=== PATIENT | female | born 1985 | race Caucasian/White ===

== ENCOUNTER 2018-01-12 01:53 | Inpatient (IN) | payer MEDICARE, MEDICAID ==
[~2018-01-12] VITALS: Ht 165.1 cm; Wt 68.1 kg
[~2018-01-12 01:53] MED LIST: ALBU6.7H INH; ALBU8.5H4 IH; CLON-527 PO; CLON2TAB PO; CYCL-1 PO; IBUP-1984 PO; ORPH100T2 PO; OXCA600T5 PO; PRAZ5CAP PO
[2018-01-12 02:16] LABS: URINE HCG NEGATIVE (NEG)
[2018-01-12 02:17] LABS: CLARITY,URINE CLOUDY (Clear); COLOR,URINE YELLOW (Yellow); GLUCOSE, URINE NEGATIVE (Neg); KETONES,URINE NEGATIVE (Neg); LEUKOCYTE ESTERASE ,URINE SMALL (Neg); NITRITES, URINE POSITIVE (Neg); OCCULT BLOOD,URINE MODERATE (Neg); PROTEIN,URINE 30 mg/dl (Neg)
[2018-01-12 02:20] LABS: UA COLLECTION TYPE CLN CATCH MIDSTREAM
[2018-01-12 02:23] LABS: BACTERIA,URINE 2+ /HPF (Neg); MUCUS STRANDS MANY /LPF (Neg); SQUAMOUS EPITHELIAL CELL,UR MANY /LPF (FEW)
[2018-01-12 02:24] LABS: BASOPHILS # (AUTO) 0.1 X10'3 (0-0.2); BASOPHILS % (AUTO) 1.4 % (0-1); EOSINOPHILS # (AUTO) 0.2 X10'3 (0-0.9); EOSINOPHILS % (AUTO) 1.6 % (0-6); HEMATOCRIT 39.8 % (35.0-45.0); HEMOGLOBIN 13.8 g/dl (12.0-16.0); LYMPHOCYTES # (AUTO) 2.8 X10'3 (1.1-4.8); LYMPHOCYTES % (AUTO) 27.7 % (21-51); MEAN CORPUSCULAR HEMOGLOBIN 29.8 PG (27.0-31.0); MEAN CORPUSCULAR HGB CONC 34.8 % (33.0-36.5); MEAN CORPUSCULAR VOLUME 85.7 FL (78-98); MEAN PLATELET VOLUME 7.7 FL (7.4-10.4); MONOCYTES # (AUTO) 0.5 X10'3 (0-0.9); MONOCYTES % (AUTO) 5.1 % (2-12); NEUTROPHILS # (AUTO) 6.5 X10'3 (1.8-7.7); NEUTROPHILS % (AUTO) 64.2 % (42-75); PLATELET COUNT 356 X10'3 (140-440); RED BLOOD COUNT 4.64 X10'6 (4.20-5.60); RED CELL DISTRIBUTION WIDTH 13.7 % (11.5-14.5); WHITE BLOOD COUNT 10.1 X10'3 (4.5-11.0)
[2018-01-12 02:25] LABS: WBC,URINE TNTC /HPF (0-4)
[2018-01-12 02:39] LABS: ALANINE AMINOTRANSFERASE 29 U/L (12-78); ALBUMIN 3.8 G/DL (3.4-5.0); ALKALINE PHOSPHATASE 130 IU/L (46-116); ANION GAP 7 (8-16); ASPARTATE AMINO TRANSFERASE 16 U/L (10-37); BILIRUBIN,TOTAL 0.2 MG/DL (0.1-1.0); BLOOD UREA NITROGEN 11 MG/DL (7-18); BUN/CREATININE RATIO 13.6 (6.6-38.0); CALCIUM 9.4 MG/DL (8.5-10.1); CHLORIDE 101 MMOL/L (99-107); CREATININE 0.81 MG/DL (0.40-0.90); GLUCOSE 121 MG/DL (70-104); SODIUM 137 MMOL/L (135-145); TOTAL CARBON DIOXIDE 28.7 MMOL/L (24-32); TOTAL PROTEIN 7.6 G/DL (6.4-8.2); eGFR 81 ML/MIN
[2018-01-12] MEDS ORDERED: normal saline 1000ML IV soln IV ONE (02:40)
[2018-01-12 02:42] LABS: POTASSIUM 2.5 MMOL/L (3.5-5.1)
[2018-01-12] MEDS ORDERED: magnesium 1gm/100ml D5W IVPB 100 ML IV ONE (02:45)
[2018-01-12] MEDS ORDERED: magnesium oxide 400mg tablet PO ONE (02:45)
[2018-01-12 02:55] LABS: MAGNESIUM 1.9 MG/DL (1.5-2.4)
[2018-01-12] MEDS ORDERED: ketorolac trometh. 30mg/ml inj. IV ONE (03:25)
[2018-01-12] MEDS ORDERED: ondansetron/PF 4mg/2ml inj IV ONE ×2 (03:25→05:50)
[2018-01-12] MEDS ORDERED: normal saline 1000ML IV soln IVB ONE (03:25)
[2018-01-12] MEDS ORDERED: levoFLOXACIN 750MG TABLET PO ONE (03:40)
[2018-01-12] MEDS ORDERED: LIDOcaine 2% (20 mg/ml) 5ml cardiac syringe IV STA (04:05)
[2018-01-12] MEDS ORDERED: LEVO500T2 PO (05:35)
[2018-01-12] MEDS ORDERED: KETO10TA2 PO (05:35)
[2018-01-12] MEDS ORDERED: ONDA4TAB9 SL (05:35)
[2018-01-12] MEDS ORDERED: FLO0.4C PO (05:35)
[2018-01-12] MEDS ORDERED: HYDR-565 PO (05:35)
[2018-01-12] MEDS ORDERED: morphine 4 MG/ML inj SYRINge IV ONE ×2 (05:50→08:05)
[2018-01-12] MEDS ORDERED: POTA20TA19 PO (07:20)
[2018-01-12] MEDS ORDERED: CefTRIAXone 2gm/D5W 50ml 50 ML IV ONE (07:25)
[2018-01-12] MEDS: potassium 10mEq/100ml NS w/LIDOcaine (10mg/bag) IV SCH ×2 (08:20→08:54)
[2018-01-12] MEDS ORDERED: metoclopramide 5 mg/ml inj IV ONE (08:45)
[2018-01-12] MEDS ORDERED: diphenhydrAMINE 50 mg/ml inj IV ONE (08:45)
[2018-01-12] MEDS ORDERED: magnesium hydroxide 30ml (MOM) UD suspension PO PRN (09:05)
[2018-01-12] MEDS ORDERED: morphine 4 MG/ML inj SYRINge IV PRN ×3 (09:05→16:10)
[2018-01-12] MEDS ORDERED: HYDROcodone/acetaminophen 5mg/325mg tablet PO PRN (09:05)
[2018-01-12] MEDS ORDERED: HYDROmorphone inj. 0.5 MG/0.5 ML DISP.SYRIN IV PRN ×2 (09:05)
[2018-01-12] MEDS ORDERED: bisacodyl 10mg suppository rectal RC PRN (09:05)
[2018-01-12] MEDS ORDERED: acetaminophen 650mg rectal suppository RC PRN (09:05)
[2018-01-12] MEDS ORDERED: acetaminophen 325mg tablet PO PRN ×2 (09:05)
[2018-01-12] MEDS ORDERED: mag hydrox/Alum hydrox/simeth 30ml oral suspension PO PRN (09:05)
[2018-01-12] MEDS ORDERED: metoclopramide 5 mg/ml inj IV PRN (09:05)
[2018-01-12] MEDS ORDERED: diphenhydrAMINE 50 mg/ml inj IV PRN (09:05)
[2018-01-12] MEDS: potassium Cl 20mEq in NS 1,000 ML IV SCH ×2 (09:27→20:25)
[2018-01-12] MEDS ORDERED: DIPH-423 PO (09:31)
[2018-01-12 11:09] LABS: INR 1.1 INR; PARTIAL THROMBOPLASTIN TIME 23 SECONDS (22-32); PROTHROMBIN TIME 11.3 SECONDS (9.0-12.0)
[2018-01-12 11:22] LABS: MAGNESIUM 1.9 MG/DL (1.5-2.4); PHOSPHORUS 1.3 MG/DL (2.3-4.5)
[2018-01-12] MEDS: HYDROmorphone 1 mg/ml syringe ONE ×2 (12:10→12:18)
[2018-01-12 13:10] VITALS: BP_SYST 84; BP_SYST 87; BP_DIAS 41; BP_DIAS 43
[2018-01-12] MEDS ORDERED: sodium phosphate inj. 15 MMOL in dextrose 5%-water 150 ML IV PRN (13:40)
[2018-01-12] MEDS ORDERED: Neutra Phos packet PO PRN (13:40)
[2018-01-12] MEDS ORDERED: sodium phosphate inj. 30 MMOL in dextrose 5%-water 250 ML IV PRN (13:40)
[2018-01-12] MEDS ORDERED: magnesium Cl slow-release 64mg tablet PO PRN (13:45)
[2018-01-12] MEDS ORDERED: potassium Cl 20 mEq SR tablet PO PRN (13:45)
[2018-01-12] MEDS ORDERED: magnesium 4gm in 100ml NS 100 ML IV PRN (13:45)
[2018-01-12] MEDS ORDERED: magnesium 1gm/100ml D5W IVPB 100 ML IV PRN (13:45)
[2018-01-12] MEDS ORDERED: potassium Cl 40MEQ/NS 500ml 500 ML IV PRN ×2 (13:45)
[2018-01-12] MEDS ORDERED: normal saline 1000ml 1,000 ML IV ONE (13:50)
[2018-01-12 16:17] LABS: CREATINE KINASE 163 U/L (26-192)
[2018-01-12 16:25] VITALS: BP 96/60
[2018-01-12 19:00] VITALS: BP 92/40
[2018-01-12] MEDS ORDERED: HYDROmorphone 1 mg/ml syringe ONE (19:27)
[2018-01-12] MEDS ORDERED: HYDROmorphone 1 mg/ml syringe IV ONE (19:50)
[2018-01-12] MEDS: docusate sod 100mg capsule PO SCH (20:24)
[2018-01-12] MEDS: heparin, porcine 5000 units/ml vial SQ SCH (20:25)
[2018-01-12] MEDS ORDERED: temazepam 15mg capsule PO PRN (21:00)
[2018-01-12] MEDS: potassium Cl 20 mEq SR tablet PO PRN (23:44)
[2018-01-13] VITALS: BP 87/51
[2018-01-13] MEDS: HYDROcodone/acetaminophen 10/325mg tab PO PRN ×5 (00:57→22:20)
[2018-01-13] MEDS: potassium Cl 20 mEq SR tablet PO PRN ×4 (04:30→20:13)
[2018-01-13] MEDS: potassium Cl 20mEq in NS 1,000 ML IV SCH ×2 (04:31→12:00)
[2018-01-13] MEDS ORDERED: HYDROmorphone 1 mg/ml syringe ONE (05:21)
[2018-01-13] MEDS: ondansetron/PF 4mg/2ml inj IV PRN ×2 (05:52→13:38)
[2018-01-13] MEDS: pantoprazole 40mg Tablet.DR PO SCH (07:04)
[2018-01-13] MEDS: docusate sod 100mg capsule PO SCH ×2 (07:04→18:59)
[2018-01-13] MEDS: levoFLOXACIN-Levaquin 500mg/D5 100 ML IV SCH (07:04)
[2018-01-13] MEDS: heparin, porcine 5000 units/ml vial SQ SCH ×2 (07:11→19:27)
[2018-01-13 07:31] VITALS: BP 109/61
[2018-01-13 07:40] LABS: ALANINE AMINOTRANSFERASE 17 U/L (12-78); ALBUMIN 2.5 G/DL (3.4-5.0); ALBUMIN/GLOBULIN RATIO 0.9 (1.1-1.5); ALKALINE PHOSPHATASE 80 IU/L (46-116); ANION GAP 6 (8-16); ASPARTATE AMINO TRANSFERASE 15 U/L (10-37); BILIRUBIN,TOTAL 0.6 MG/DL (0.1-1.0); BLOOD UREA NITROGEN 6 MG/DL (7-18); CALCIUM 7.5 MG/DL (8.5-10.1); CHLORIDE 106 MMOL/L (99-107); CREATININE 0.67 MG/DL (0.40-0.90); GLUCOSE 99 MG/DL (70-104); SODIUM 139 MMOL/L (135-145); TOTAL CARBON DIOXIDE 26.6 MMOL/L (24-32); TOTAL PROTEIN 5.2 G/DL (6.4-8.2); eGFR > 90 ML/MIN
[2018-01-13 07:42] LABS: POTASSIUM 2.8 MMOL/L (3.5-5.1)
[2018-01-13] MEDS ORDERED: HYDROmorphone 1 mg/ml syringe IV PRN (09:16)
[2018-01-13 10:13] LABS: PHOSPHORUS 1.9 MG/DL (2.3-4.5)
[2018-01-13] MEDS: HYDROmorphone 1 mg/ml syringe IV PRN ×4 (10:28→23:56)
[2018-01-13 10:57] LABS: BASOPHILS % (AUTO) 0.1 % (0-1); EOSINOPHILS % (AUTO) 0.1 % (0-6); HEMATOCRIT 28.2 % (35.0-45.0); HEMOGLOBIN 9.6 g/dl (12.0-16.0); LYMPHOCYTES # (AUTO) 0.5 X10'3 (1.1-4.8); LYMPHOCYTES % (AUTO) 7.4 % (21-51); MEAN CORPUSCULAR HEMOGLOBIN 29.5 PG (27.0-31.0); MEAN CORPUSCULAR HGB CONC 34.2 % (33.0-36.5); MEAN CORPUSCULAR VOLUME 86.2 FL (78-98); MONOCYTES # (AUTO) 0.3 X10'3 (0-0.9); MONOCYTES % (AUTO) 4.2 % (2-12); NEUTROPHILS # (AUTO) 6.3 X10'3 (1.8-7.7); NEUTROPHILS % (AUTO) 88.2 % (42-75); PLATELET COUNT 152 X10'3 (140-440); RED BLOOD COUNT 3.27 X10'6 (4.20-5.60); RED CELL DISTRIBUTION WIDTH 13.9 % (11.5-14.5); WHITE BLOOD COUNT 7.1 X10'3 (4.5-11.0)
[2018-01-13 11:13] VITALS: BP 91/41
[2018-01-13] MEDS: CefTRIAXone/D5W-Rocephin 1gm 50 ML IV SCH (13:33)
[2018-01-13] MEDS: diphenhydrAMINE 25mg capsule PO PRN (15:28)
[2018-01-13 19:00] VITALS: BP 98/50
[2018-01-14] VITALS: BP 114/69
[2018-01-14] MEDS: potassium Cl 20mEq in NS 1,000 ML IV SCH (00:02)
[2018-01-14 02:17] LABS: ALANINE AMINOTRANSFERASE 23 U/L (12-78); ALBUMIN 2.4 G/DL (3.4-5.0); ALBUMIN/GLOBULIN RATIO 0.9 (1.1-1.5); ALKALINE PHOSPHATASE 68 IU/L (46-116); ANION GAP 6 (8-16); ASPARTATE AMINO TRANSFERASE 21 U/L (10-37); BILIRUBIN,TOTAL 0.2 MG/DL (0.1-1.0); BLOOD UREA NITROGEN 3 MG/DL (7-18); BUN/CREATININE RATIO 4.5 (6.6-38.0); CALCIUM 7.8 MG/DL (8.5-10.1); CHLORIDE 107 MMOL/L (99-107); CREATININE 0.66 MG/DL (0.40-0.90); GLUCOSE 99 MG/DL (70-104); PHOSPHORUS 1.5 MG/DL (2.3-4.5); POTASSIUM 4.1 MMOL/L (3.5-5.1); SODIUM 137 MMOL/L (135-145); TOTAL CARBON DIOXIDE 24.5 MMOL/L (24-32); TOTAL PROTEIN 5.1 G/DL (6.4-8.2); eGFR > 90 ML/MIN
[2018-01-14 02:51] LABS: BASOPHILS % (AUTO) 0.3 % (0-1); EOSINOPHILS # (AUTO) 0.1 X10'3 (0-0.9); EOSINOPHILS % (AUTO) 2.3 % (0-6); HEMATOCRIT 27.8 % (35.0-45.0); HEMOGLOBIN 9.4 g/dl (12.0-16.0); LYMPHOCYTES # (AUTO) 0.9 X10'3 (1.1-4.8); LYMPHOCYTES % (AUTO) 18.5 % (21-51); MEAN CORPUSCULAR HEMOGLOBIN 29.6 PG (27.0-31.0); MEAN CORPUSCULAR HGB CONC 33.9 % (33.0-36.5); MEAN CORPUSCULAR VOLUME 87.5 FL (78-98); MEAN PLATELET VOLUME 7.8 FL (7.4-10.4); MONOCYTES # (AUTO) 0.4 X10'3 (0-0.9); MONOCYTES % (AUTO) 7.3 % (2-12); NEUTROPHILS # (AUTO) 3.5 X10'3 (1.8-7.7); NEUTROPHILS % (AUTO) 71.6 % (42-75); PLATELET COUNT 139 X10'3 (140-440); RED BLOOD COUNT 3.17 X10'6 (4.20-5.60); RED CELL DISTRIBUTION WIDTH 13.7 % (11.5-14.5); WHITE BLOOD COUNT 4.9 X10'3 (4.5-11.0)
[2018-01-14] MEDS: ondansetron/PF 4mg/2ml inj IV PRN ×2 (02:56→18:57)
[2018-01-14] MEDS: HYDROcodone/acetaminophen 10/325mg tab PO PRN ×2 (02:57→07:00)
[2018-01-14] MEDS: HYDROmorphone 1 mg/ml syringe IV PRN ×5 (04:38→22:59)
[2018-01-14] MEDS: pantoprazole 40mg Tablet.DR PO SCH (07:00)
[2018-01-14] MEDS: diphenhydrAMINE 25mg capsule PO PRN ×2 (07:00→14:07)
[2018-01-14] MEDS: docusate sod 100mg capsule PO SCH ×2 (07:00→19:22)
[2018-01-14] MEDS: CefTRIAXone/D5W-Rocephin 1gm 50 ML IV SCH (07:00)
[2018-01-14] MEDS: heparin, porcine 5000 units/ml vial SQ SCH ×2 (07:00→19:23)
[2018-01-14] MEDS: levoFLOXACIN-Levaquin 500mg/D5 100 ML IV SCH (07:01)
[2018-01-14] MEDS ORDERED: oxyCODONE/APAP 5-325mg tablet PO PRN (09:00)
[2018-01-14 09:39] VITALS: BP 94/66
[2018-01-14 10:34] LABS: PREALBUMIN 11.2 MG/DL (19-36)
[2018-01-14] MEDS: oxyCODONE/APAP 10/325mg tablet PO PRN ×3 (11:03→20:23)
[2018-01-14] MEDS ORDERED: potassium phosphate inj 30 MMOL in normal saline 500ml IV soln 490 ML IV ONE (13:00)
[2018-01-14 19:20] VITALS: BP 105/61
[2018-01-14] MEDS: lactobacillus rhamnosus 10,000 MMU CELLS/CAPSULE PO SCH (19:22)
[2018-01-14 23:15] VITALS: BP 111/75
[2018-01-15] MEDS: oxyCODONE/APAP 10/325mg tablet PO PRN ×2 (03:46→11:01)
[2018-01-15 07:23] VITALS: BP 107/53
[2018-01-15] MEDS: ondansetron/PF 4mg/2ml inj IV PRN (08:10)
[2018-01-15] MEDS: pantoprazole 40mg Tablet.DR PO SCH (08:11)
[2018-01-15] MEDS: lactobacillus rhamnosus 10,000 MMU CELLS/CAPSULE PO SCH (08:11)
[2018-01-15] MEDS: docusate sod 100mg capsule PO SCH (08:11)
[2018-01-15] MEDS: CefTRIAXone/D5W-Rocephin 1gm 50 ML IV SCH (08:11)
[2018-01-15] MEDS: HYDROmorphone 1 mg/ml syringe IV PRN (08:12)
[2018-01-15] MEDS: heparin, porcine 5000 units/ml vial SQ SCH (08:14)
[2018-01-15 09:39] LABS: BASOPHILS % (AUTO) 0.4 % (0-1); EOSINOPHILS # (AUTO) 0.1 X10'3 (0-0.9); EOSINOPHILS % (AUTO) 1.5 % (0-6); HEMATOCRIT 31.2 % (35.0-45.0); HEMOGLOBIN 10.5 g/dl (12.0-16.0); LYMPHOCYTES # (AUTO) 0.7 X10'3 (1.1-4.8); LYMPHOCYTES % (AUTO) 20.1 % (21-51); MEAN CORPUSCULAR HEMOGLOBIN 29.1 PG (27.0-31.0); MEAN CORPUSCULAR HGB CONC 33.6 % (33.0-36.5); MEAN CORPUSCULAR VOLUME 86.5 FL (78-98); MONOCYTES # (AUTO) 0.2 X10'3 (0-0.9); MONOCYTES % (AUTO) 5.2 % (2-12); NEUTROPHILS # (AUTO) 2.7 X10'3 (1.8-7.7); NEUTROPHILS % (AUTO) 72.8 % (42-75); PLATELET COUNT 189 X10'3 (140-440); RED CELL DISTRIBUTION WIDTH 13.9 % (11.5-14.5); WHITE BLOOD COUNT 3.7 X10'3 (4.5-11.0)
[2018-01-15 10:01] LABS: ALANINE AMINOTRANSFERASE 56 U/L (12-78); ALBUMIN 2.6 G/DL (3.4-5.0); ALBUMIN/GLOBULIN RATIO 0.9 (1.1-1.5); ALKALINE PHOSPHATASE 118 IU/L (46-116); ANION GAP 6 (8-16); ASPARTATE AMINO TRANSFERASE 67 U/L (10-37); BILIRUBIN,TOTAL 0.3 MG/DL (0.1-1.0); BLOOD UREA NITROGEN 2 MG/DL (7-18); BUN/CREATININE RATIO 4.3 (6.6-38.0); CALCIUM 8.6 MG/DL (8.5-10.1); CHLORIDE 105 MMOL/L (99-107); CREATININE 0.47 MG/DL (0.40-0.90); GLUCOSE 113 MG/DL (70-104); PHOSPHORUS 3.3 MG/DL (2.3-4.5); POTASSIUM 3.7 MMOL/L (3.5-5.1); SODIUM 141 MMOL/L (135-145); TOTAL CARBON DIOXIDE 30.4 MMOL/L (24-32); TOTAL PROTEIN 5.6 G/DL (6.4-8.2); eGFR > 90 ML/MIN
[2018-01-15] MEDS ORDERED: LEVO500T2 PO (10:48)
[2018-01-15] MEDS ORDERED: HYDR-569 PO (10:48)
[2018-01-15 12:59] LABS: PARATHYROID HORMONE 79.9 PG/ML (11-67)
== END 2018-01-15 12:05 | disposition home or self-care (01) | DRG 690 ==
LOC: ER 01:53 → ED HOLD 09:05 → SUR 3N 13:14
PROVIDERS: ADMIT Family Medicine; ATTEND Internal Medicine
DX: N13.6 Pyonephrosis (principal); E87.6 Hypokalemia; D64.9 Anemia, unspecified; E83.39 Other disorders of phosphorus metabolism; E86.1 Hypovolemia; J45.909 Unspecified asthma, uncomplicated; F32.9 Major depressive disorder, single episode, unspecified; F41.9 Anxiety disorder, unspecified; G43.909 Migraine, unspecified, not intractable, without status migrainosus; G89.29 Other chronic pain; Z87.01 Personal history of pneumonia (recurrent); Z87.442 Personal history of urinary calculi; Z90.710 Acquired absence of both cervix and uterus; Z88.0 Allergy status to penicillin; Z88.1 Allergy status to other antibiotic agents; Z88.8 Allergy status to other drugs, medicaments and biological substances; Z88.5 Allergy status to narcotic agent; Z79.899 Other long term (current) drug therapy
CPT/HCPCS: 36415; 74018; 74176; 80053; 81001; 81025; 82306; 82550; 83605; 83735; 83880; 83970; 84100; 84134; 84145; 85025; 85610; 85730; 87040; 87070; 87088; 96365; 96367; 96375; 96376; 99285; J0696; J1170; J1200; J1644; J1885; J1956; J2001; J2270; J2405; J2765; J3480; J7030; J7060; Q0163

== ENCOUNTER 2019-09-17 10:47 | Emergency (ER) | payer MEDICARE, MEDICAID ==
[~2019-09-17] VITALS: Ht 165.1 cm; Wt 81.8 kg
[~2019-09-17 10:47] MED LIST changes: -ALBU6.7H INH; -ALBU8.5H4 IH; -CLON-527 PO; -CLON2TAB PO; -CYCL-1 PO; +DIPH-423 PO; +HYDR-4383 PO; -ORPH100T2 PO; -OXCA600T5 PO; -PRAZ5CAP PO
[2019-09-17] MEDS ORDERED: CEPH250T PO (11:19)
[2019-09-17 11:52] VITALS: BP 128/92
== END 2019-09-17 11:53 | disposition home or self-care (01) ==
LOC: ER 10:48
DX: H05.013 Cellulitis of bilateral orbits (principal); L08.9 Local infection of the skin and subcutaneous tissue, unspecified; J45.909 Unspecified asthma, uncomplicated; G89.29 Other chronic pain; F41.9 Anxiety disorder, unspecified; F31.9 Bipolar disorder, unspecified; F17.200 Nicotine dependence, unspecified, uncomplicated; Z90.710 Acquired absence of both cervix and uterus; Z98.51 Tubal ligation status; Z98.890 Other specified postprocedural states; Z56.0 Unemployment, unspecified; Z88.0 Allergy status to penicillin; Z88.1 Allergy status to other antibiotic agents; Z88.5 Allergy status to narcotic agent; Z88.8 Allergy status to other drugs, medicaments and biological substances; Z79.899 Other long term (current) drug therapy
CPT/HCPCS: 99283

== ENCOUNTER 2019-11-24 21:32 | Emergency (ER) | payer MEDICARE, MEDICAID ==
[~2019-11-24] VITALS: Ht 165.1 cm; Wt 90.9 kg
[2019-11-24 22:29] LABS: BASOPHILS % (AUTO) 0.5 % (0-1); EOSINOPHILS # (AUTO) 0.3 X10'3 (0-0.9); EOSINOPHILS % (AUTO) 3.3 % (0-6); HEMOGLOBIN 12.4 g/dl (12.0-16.0); LYMPHOCYTES % (AUTO) 25.5 % (21-51); MEAN CORPUSCULAR HEMOGLOBIN 28.5 PG (27.0-31.0); MEAN CORPUSCULAR HGB CONC 33.6 g/dL (33.0-36.5); MEAN PLATELET VOLUME 7.6 FL (7.4-10.4); MONOCYTES # (AUTO) 0.5 X10'3 (0-0.9); NEUTROPHILS # (AUTO) 5.1 X10'3 (1.8-7.7); NEUTROPHILS % (AUTO) 64.7 % (42-75); PLATELET COUNT 306 X10'3 (140-440); RED BLOOD COUNT 4.36 X10'6 (4.20-5.60); WHITE BLOOD COUNT 7.9 X10'3 (4.5-11.0)
[2019-11-24 22:35] LABS: ALANINE AMINOTRANSFERASE 26 U/L (12-78); ALBUMIN 3.7 G/DL (3.4-5.0); ALBUMIN/GLOBULIN RATIO 0.9 (1.1-1.5); ALKALINE PHOSPHATASE 132 IU/L (46-116); ANION GAP 10 (8-16); ASPARTATE AMINO TRANSFERASE 17 U/L (10-37); BILIRUBIN,TOTAL 0.2 MG/DL (0.1-1.0); BLOOD UREA NITROGEN 8 MG/DL (7-18); BUN/CREATININE RATIO 7.8 (6.6-38.0); CHLORIDE 109 MMOL/L (99-107); CREATININE 1.03 MG/DL (0.40-0.90); GLUCOSE 90 MG/DL (70-104); POTASSIUM 3.7 MMOL/L (3.5-5.1); SODIUM 145 MMOL/L (135-145); TOTAL CARBON DIOXIDE 26.5 MMOL/L (24-32); eGFR 61 ML/MIN
[2019-11-24] MEDS ORDERED: normal saline 1000ML IV soln IVB ONE (22:50)
[2019-11-24] MEDS ORDERED: methylPREDNISolone sod succ 125mg/2ml vial IV ONE (22:50)
[2019-11-24] MEDS ORDERED: CefTRIAXone 2gm/D5W 50ml 50 ML IV ONE (23:10)
[2019-11-25] MEDS ORDERED: PRED20TA PO (00:42)
[2019-11-25] MEDS ORDERED: AZIT500T PO (00:42)
--- NOTE | 2019-11-25 01:13 | NUR ---
Took patient on walk around ER to monitor O2 sat. She was between 93-95% on RA walking
[2019-11-25] MEDS ORDERED: ketorolac trometh. 30mg/ml inj. IV ONE (01:20)
[2019-11-25] MEDS ORDERED: HYDROcodone/acetaminophen 5mg/325mg tablet PO ONE (01:20)
[2019-11-25] MEDS ORDERED: DOXY100C76 PO (01:45)
[2019-11-25 02:04] VITALS: BP 128/59
[2019-11-25] MEDS ORDERED: HYDR-4383 PO (22:17)
== END 2019-11-25 02:07 | disposition home or self-care (01) ==
LOC: ER 21:35
DX: J18.9 Pneumonia, unspecified organism (principal); G43.909 Migraine, unspecified, not intractable, without status migrainosus; J45.909 Unspecified asthma, uncomplicated; G89.29 Other chronic pain; F41.9 Anxiety disorder, unspecified; F31.9 Bipolar disorder, unspecified; Z87.891 Personal history of nicotine dependence; Z88.0 Allergy status to penicillin; Z88.5 Allergy status to narcotic agent; Z88.8 Allergy status to other drugs, medicaments and biological substances; Z79.899 Other long term (current) drug therapy
CPT/HCPCS: 36415; 71046; 80053; 83880; 84484; 85025; 93005; 96365; 96375; 99285; J0696; J1885; J2930; J7030

== ENCOUNTER 2019-11-25 16:04 | Emergency (ER) | payer MEDICARE, MEDICAID ==
[~2019-11-25] VITALS: Ht 165.1 cm; Wt 90.9 kg
[~2019-11-25 16:04] MED LIST changes: +AZIT500T PO; +DOXY100C76 PO; +PRED20TA PO
[2019-11-25 16:43] LABS: BASOPHILS # (AUTO) 0.1 X10'3 (0-0.2); BASOPHILS % (AUTO) 0.4 % (0-1); EOSINOPHILS % (AUTO) 0 % (0-6); HEMATOCRIT 35.2 % (35.0-45.0); HEMOGLOBIN 11.7 g/dl (12.0-16.0); LYMPHOCYTES # (AUTO) 0.8 X10'3 (1.1-4.8); LYMPHOCYTES % (AUTO) 6.5 % (21-51); MEAN CORPUSCULAR HEMOGLOBIN 28.4 PG (27.0-31.0); MEAN CORPUSCULAR HGB CONC 33.2 g/dL (33.0-36.5); MEAN CORPUSCULAR VOLUME 85.7 FL (78-98); MEAN PLATELET VOLUME 7.4 FL (7.4-10.4); MONOCYTES # (AUTO) 0.5 X10'3 (0-0.9); MONOCYTES % (AUTO) 3.8 % (2-12); NEUTROPHILS # (AUTO) 11.7 X10'3 (1.8-7.7); NEUTROPHILS % (AUTO) 89.3 % (42-75); PLATELET COUNT 343 X10'3 (140-440); RED BLOOD COUNT 4.11 X10'6 (4.20-5.60); RED CELL DISTRIBUTION WIDTH 14.1 % (11.5-14.5); WHITE BLOOD COUNT 13.1 X10'3 (4.5-11.0)
[2019-11-25] MEDS ORDERED: ketorolac trometh. 30mg/ml inj. IV ONE (17:00)
[2019-11-25] MEDS ORDERED: ondansetron/PF 4mg/2ml inj IV ONE (17:00)
[2019-11-25] MEDS ORDERED: morphine 10mg/ml inj. IV ONE ×3 (17:00→21:50)
[2019-11-25] MEDS ORDERED: normal saline 1000ML IV soln IVB ONE ×2 (17:00→17:35)
[2019-11-25 17:04] LABS: ALANINE AMINOTRANSFERASE 35 U/L (12-78); ALBUMIN 4.1 G/DL (3.4-5.0); ALBUMIN/GLOBULIN RATIO 1.1 (1.1-1.5); ALKALINE PHOSPHATASE 131 IU/L (46-116); ANION GAP 14 (8-16); ASPARTATE AMINO TRANSFERASE 19 U/L (10-37); BILIRUBIN,TOTAL 0.2 MG/DL (0.1-1.0); BLOOD UREA NITROGEN 7 MG/DL (7-18); BUN/CREATININE RATIO 6.5 (6.6-38.0); CALCIUM 9.3 MG/DL (8.5-10.1); CHLORIDE 108 MMOL/L (99-107); CREATININE 1.08 MG/DL (0.40-0.90); GLUCOSE 160 MG/DL (70-104); POTASSIUM 3.9 MMOL/L (3.5-5.1); SODIUM 142 MMOL/L (135-145); TOTAL CARBON DIOXIDE 20.5 MMOL/L (24-32); TOTAL PROTEIN 7.8 G/DL (6.4-8.2); eGFR 58 ML/MIN
[2019-11-25 17:25] LABS: PARTIAL THROMBOPLASTIN TIME 26 SECONDS (22-32)
[2019-11-25 17:35] LABS: LIPASE 104 U/L (73-393)
[2019-11-25 17:42] LABS: URINE HCG NEGATIVE (NEG)
[2019-11-25] MEDS ORDERED: iohexol 350MG/ML 100ml bottle IV ONE (17:50)
[2019-11-25 18:00] LABS: CLARITY,URINE CLEAR (Clear); COLOR,URINE YELLOW (Yellow); GLUCOSE, URINE NEGATIVE (Neg); KETONES,URINE NEGATIVE (Neg); LEUKOCYTE ESTERASE ,URINE TRACE (Neg); NITRITES, URINE NEGATIVE (Neg); OCCULT BLOOD,URINE NEGATIVE (Neg); PROTEIN,URINE NEGATIVE (Neg); UROBILINOGEN,URINE 0.2 E.U/dL (0.2-1.0)
[2019-11-25 18:02] LABS: UA COLLECTION TYPE CLN CATCH MIDSTREAM
[2019-11-25 18:14] LABS: BACTERIA,URINE NONE SEEN /HPF (Neg); MUCUS STRANDS NONE SEEN /LPF (Neg); RBC,URINE 0-2 /HPF (0-2); SQUAMOUS EPITHELIAL CELL,UR MODERATE /LPF (FEW); TRANSITIONAL EPI CELLS,URINE FEW /HPF; WBC,URINE 0-4 /HPF (0-4)
[2019-11-25 18:34] LABS: URINE AMPHETAMINE SCREEN NEGATIVE (Neg); URINE BARBITUATE SCREEN NEGATIVE (Neg); URINE BENZODIAZEPINES SCREEN NEGATIVE (Neg); URINE CANNABINOID SCREEN NEGATIVE (Neg); URINE COCAINE SCREEN NEGATIVE (Neg); URINE METHADONE SCREEN NEGATIVE (Neg); URINE OPIATE SCREEN NEGATIVE (Neg); URINE PHENCYCLIDINE SCREEN NEGATIVE (Neg)
[2019-11-25] MEDS ORDERED: LORazepam 2 mg/ml vial IV ONE (19:30)
--- NOTE | 2019-11-25 21:17 | NUR ---
Unable to pull medications from [facility], pharmacy aware and unable to provide controlled substances at this time.
[2019-11-25] MEDS ORDERED: morphine 4 MG/ML inj SYRINge ONE (21:30)
[2019-11-25] MEDS ORDERED: LORazepam 2 mg/ml vial ONE (21:32)
[2019-11-25] MEDS ORDERED: morphine 4 MG/ML inj SYRINge IV ONE (21:40)
[2019-11-25] MEDS ORDERED: HYDR-4383 PO (22:17)
[2019-11-25 22:38] VITALS: BP 127/75
== END 2019-11-25 22:41 | disposition home or self-care (01) ==
LOC: ER 16:05
DX: J84.10 Pulmonary fibrosis, unspecified (principal); Z20.828 Contact with and (suspected) exposure to other viral communicable diseases; G43.909 Migraine, unspecified, not intractable, without status migrainosus; J45.909 Unspecified asthma, uncomplicated; G89.29 Other chronic pain; F41.9 Anxiety disorder, unspecified; F31.9 Bipolar disorder, unspecified; Z90.710 Acquired absence of both cervix and uterus; Z98.51 Tubal ligation status; Z98.890 Other specified postprocedural states; Z56.0 Unemployment, unspecified; Z88.0 Allergy status to penicillin; Z88.1 Allergy status to other antibiotic agents; Z88.6 Allergy status to analgesic agent; Z79.899 Other long term (current) drug therapy; Z88.5 Allergy status to narcotic agent
CPT/HCPCS: 36415; 71046; 71275; 76700; 80053; 80305; 81001; 81025; 83605; 83690; 83880; 84145; 85025; 85379; 85610; 85730; 87040; 87088; 87635; 93005; 96374; 96375; 96376; 99285; J1885; J2060; J2270; J2405; J7030; Q9967

== ENCOUNTER 2019-12-22 16:00 | Emergency (ER) | payer MEDICARE, MEDICAID ==
[~2019-12-22] VITALS: Ht 165.1 cm; Wt 92.7 kg
[2019-12-22 16:05] VITALS: BP 111/81
[2019-12-22] MEDS ORDERED: LIDOcaine 5% patch TP SCH (17:10)
[2019-12-22] MEDS ORDERED: NAPR-56 PO (17:13)
== END 2019-12-22 17:34 | disposition home or self-care (01) ==
LOC: ER 16:00
DX: S93.401A Sprain of unspecified ligament of right ankle, initial encounter (principal); G43.909 Migraine, unspecified, not intractable, without status migrainosus; J45.909 Unspecified asthma, uncomplicated; G89.29 Other chronic pain; F41.9 Anxiety disorder, unspecified; F31.9 Bipolar disorder, unspecified; Z90.710 Acquired absence of both cervix and uterus; Z98.51 Tubal ligation status; Z98.890 Other specified postprocedural states; Z88.0 Allergy status to penicillin; Z88.5 Allergy status to narcotic agent; Z88.8 Allergy status to other drugs, medicaments and biological substances; Z79.899 Other long term (current) drug therapy; X58.XXXA Exposure to other specified factors, initial encounter; Y93.89 Activity, other specified; Y92.89 Other specified places as the place of occurrence of the external cause; Y99.8 Other external cause status
CPT/HCPCS: 73610; 99283

== ENCOUNTER 2021-03-02 08:45 | Emergency (ER) | payer MEDICARE, MEDICAID ==
[~2021-03-02] VITALS: Ht 165.1 cm; Wt 89.6 kg
[~2021-03-02 08:45] MED LIST changes: -AZIT500T PO; -DOXY100C76 PO; +NAPR-56 PO; -PRED20TA PO
[2021-03-02] MEDS ORDERED: ondansetron 4mg/5ml UD cup PO ONE (10:15)
[2021-03-02] MEDS ORDERED: HYDROcodone/acetaminophen 5mg/325mg tablet PO ONE (10:20)
[2021-03-02] MEDS ORDERED: ondansetron 4mg rapidly disintigrating tab PO ONE ×2 (10:25)
[2021-03-02] MEDS ORDERED: HYDR-3965 PO (10:29)
[2021-03-02 10:30] VITALS: BP 116/69
== END 2021-03-02 10:46 | disposition home or self-care (01) ==
LOC: ER 08:45
DX: S90.32XA Contusion of left foot, initial encounter (principal); S90.122A Contusion of left lesser toe(s) without damage to nail, initial encounter; M79.672 Pain in left foot; G43.909 Migraine, unspecified, not intractable, without status migrainosus; J45.909 Unspecified asthma, uncomplicated; G89.29 Other chronic pain; Z87.01 Personal history of pneumonia (recurrent); Z87.442 Personal history of urinary calculi; Z87.440 Personal history of urinary (tract) infections; Z90.710 Acquired absence of both cervix and uterus; Z98.51 Tubal ligation status; Z56.0 Unemployment, unspecified; Z79.899 Other long term (current) drug therapy; Z88.0 Allergy status to penicillin; Z88.1 Allergy status to other antibiotic agents; Z88.6 Allergy status to analgesic agent; Z88.8 Allergy status to other drugs, medicaments and biological substances; W22.8XXA Striking against or struck by other objects, initial encounter; Z91.81 History of falling; Y93.02 Activity, running; Y92.89 Other specified places as the place of occurrence of the external cause; Y99.8 Other external cause status
CPT/HCPCS: 73630; 99284

== ENCOUNTER 2021-04-08 18:13 | Emergency (ER) | payer MEDICARE, MEDICAID ==
[~2021-04-08] VITALS: Ht 165.1 cm; Wt 88.6 kg
[2021-04-08 18:39] VITALS: BP 123/66
[2021-04-08] MEDS ORDERED: ketorolac tromethamine 15mg/ml inj. IM ONE (21:25)
[2021-04-08] MEDS ORDERED: proCHLORperazine 10 MG/2 ml inj IM ONE (21:25)
[2021-04-08] MEDS ORDERED: diphenhydrAMINE 25mg capsule PO ONE (21:25)
[2021-04-08] MEDS ORDERED: diazepam inj 5 MG/ML inj. IM ONE (22:05)
--- NOTE | 2021-04-08 22:42 | NUR ---
pt left t2 stating she did not want to be here any longer. notified.
== END 2021-04-08 23:26 | disposition left against medical advice (07) ==
LOC: ER 18:13
DX: G43.909 Migraine, unspecified, not intractable, without status migrainosus (principal); E78.00 Pure hypercholesterolemia, unspecified; J45.909 Unspecified asthma, uncomplicated; G89.29 Other chronic pain; F41.9 Anxiety disorder, unspecified; F31.9 Bipolar disorder, unspecified; Z87.01 Personal history of pneumonia (recurrent); Z87.442 Personal history of urinary calculi; Z87.440 Personal history of urinary (tract) infections; Z90.710 Acquired absence of both cervix and uterus; Z98.51 Tubal ligation status; Z98.890 Other specified postprocedural states; Z56.0 Unemployment, unspecified; Z88.0 Allergy status to penicillin; Z88.1 Allergy status to other antibiotic agents; Z88.6 Allergy status to analgesic agent; Z88.5 Allergy status to narcotic agent; Z88.8 Allergy status to other drugs, medicaments and biological substances; Z79.899 Other long term (current) drug therapy
CPT/HCPCS: 96372; 99284; J0780; J1885; J3360; Q0163

== ENCOUNTER 2021-07-30 16:06 | Emergency (ER) | payer MEDICARE, MEDICAID ==
[~2021-07-30] VITALS: Ht 165.1 cm; Wt 81.8 kg
[2021-07-30] MEDS ORDERED: dexamethasone 4mg tablet PO ONE (16:20)
[2021-07-30] MEDS ORDERED: ipratropium/albuterol 3ml nebule NEB ONE (16:20)
--- NOTE | 2021-07-30 16:21 | NUR ---
notified of pt's chest pain. No orders at this time.
[2021-07-30] MEDS ORDERED: albuterol 2.5 MG/3 ML nebule CONTNEB PRN (17:10)
[2021-07-30 18:33] VITALS: BP 100/50
== END 2021-07-30 18:36 | disposition home or self-care (01) ==
LOC: ER 16:06
DX: J20.9 Acute bronchitis, unspecified (principal); J45.901 Unspecified asthma with (acute) exacerbation; R06.02 Shortness of breath; R05.9 Cough, unspecified; G43.909 Migraine, unspecified, not intractable, without status migrainosus; E78.00 Pure hypercholesterolemia, unspecified; G89.29 Other chronic pain; F41.9 Anxiety disorder, unspecified; F31.9 Bipolar disorder, unspecified; Z87.01 Personal history of pneumonia (recurrent); Z87.442 Personal history of urinary calculi; Z87.440 Personal history of urinary (tract) infections; Z90.710 Acquired absence of both cervix and uterus; Z98.51 Tubal ligation status; Z98.890 Other specified postprocedural states; Z72.0 Tobacco use; Z56.0 Unemployment, unspecified; Z88.0 Allergy status to penicillin; Z88.1 Allergy status to other antibiotic agents; Z88.8 Allergy status to other drugs, medicaments and biological substances; Z88.5 Allergy status to narcotic agent; Z79.899 Other long term (current) drug therapy
CPT/HCPCS: 71045; 94640; 94644; 94760; 99285; A7015

== ENCOUNTER 2021-09-22 14:42 | Emergency (ER) | payer MEDICARE, MEDICAID ==
[~2021-09-22] VITALS: Ht 165.1 cm; Wt 82.7 kg
[2021-09-22 14:47] VITALS: BP 111/69
[2021-09-22] MEDS ORDERED: IBUP-1984 PO (15:47)
[2021-09-22] MEDS: HYDROcodone/acetaminophen 10/325mg tab PO ONE (15:56)
== END 2021-09-22 16:24 | disposition home or self-care (01) ==
LOC: ER 14:43
DX: S93.402A Sprain of unspecified ligament of left ankle, initial encounter (principal); S80.212A Abrasion, left knee, initial encounter; S80.211A Abrasion, right knee, initial encounter; G43.909 Migraine, unspecified, not intractable, without status migrainosus; E78.00 Pure hypercholesterolemia, unspecified; J45.909 Unspecified asthma, uncomplicated; G89.29 Other chronic pain; F41.9 Anxiety disorder, unspecified; F31.9 Bipolar disorder, unspecified; Z87.01 Personal history of pneumonia (recurrent); Z87.442 Personal history of urinary calculi; Z87.440 Personal history of urinary (tract) infections; Z90.710 Acquired absence of both cervix and uterus; Z98.51 Tubal ligation status; Z98.890 Other specified postprocedural states; Z56.0 Unemployment, unspecified; Z88.0 Allergy status to penicillin; Z88.1 Allergy status to other antibiotic agents; Z88.8 Allergy status to other drugs, medicaments and biological substances; Z79.899 Other long term (current) drug therapy; W10.9XXA Fall (on) (from) unspecified stairs and steps, initial encounter; Y93.89 Activity, other specified; Y92.89 Other specified places as the place of occurrence of the external cause; Y99.8 Other external cause status
CPT/HCPCS: 73610; 99284

== ENCOUNTER 2021-11-23 20:50 | Emergency (ER) | payer MEDICARE, MEDICAID ==
[~2021-11-23] VITALS: Ht 165.1 cm; Wt 80.9 kg
[2021-11-24] MEDS ORDERED: ketorolac trometh inj. 60 MG/2 ML VIAL IM ONE (00:05)
[2021-11-24] MEDS ORDERED: HYDR50TA65 PO (00:22)
== END 2021-11-24 00:26 | disposition home or self-care (01) ==
LOC: ER 20:50
DX: M25.571 Pain in right ankle and joints of right foot (principal); M25.572 Pain in left ankle and joints of left foot; G43.909 Migraine, unspecified, not intractable, without status migrainosus; E78.00 Pure hypercholesterolemia, unspecified; J45.909 Unspecified asthma, uncomplicated; G89.29 Other chronic pain; Z87.442 Personal history of urinary calculi; Z87.440 Personal history of urinary (tract) infections; Z87.01 Personal history of pneumonia (recurrent); Z90.710 Acquired absence of both cervix and uterus; Z98.51 Tubal ligation status; Z56.0 Unemployment, unspecified; Z88.0 Allergy status to penicillin; Z88.1 Allergy status to other antibiotic agents; Z79.899 Other long term (current) drug therapy; Z88.8 Allergy status to other drugs, medicaments and biological substances
CPT/HCPCS: 73610; 73620; 96372; 99284; J1885; A6449

== ENCOUNTER 2021-12-20 18:54 | Emergency (ER) | payer MEDICARE, MEDICAID ==
[~2021-12-20] VITALS: Ht 152.4 cm; Wt 80.5 kg
[~2021-12-20 18:54] MED LIST changes: +HYDR50TA65 PO
[2021-12-20 19:01] VITALS: BP 112/71
[2021-12-20 19:25] LABS: CLARITY,URINE CLEAR (Clear); COLOR,URINE YELLOW (Yellow); GLUCOSE, URINE NEGATIVE (Neg); KETONES,URINE NEGATIVE (Neg); LEUKOCYTE ESTERASE ,URINE NEGATIVE (Neg); NITRITES, URINE NEGATIVE (Neg); OCCULT BLOOD,URINE NEGATIVE (Neg); PROTEIN,URINE NEGATIVE (Neg); UROBILINOGEN,URINE 0.2 E.U/dL (0.2-1.0)
[2021-12-20 19:30] LABS: URINE HCG NEGATIVE (NEG)
[2021-12-20 19:34] LABS: UA COLLECTION TYPE NON-SPECIFIED
[2021-12-20] MEDS ORDERED: ketorolac trometh. 30mg/ml inj. IM ONE (21:15)
[2021-12-20] MEDS ORDERED: OXYC5CAP19 PO (21:45)
[2021-12-20] MEDS ORDERED: oxyCODONE IR 5mg (immed. release) tablet PO ONE (22:20)
--- NOTE | 2021-12-20 22:35 | NUR ---
po med given
== END 2021-12-20 22:36 | disposition home or self-care (01) ==
LOC: ER 18:55
DX: M54.41 Lumbago with sciatica, right side (principal); G43.909 Migraine, unspecified, not intractable, without status migrainosus; E78.00 Pure hypercholesterolemia, unspecified; J45.909 Unspecified asthma, uncomplicated; G89.29 Other chronic pain; F41.9 Anxiety disorder, unspecified; F31.9 Bipolar disorder, unspecified; Z87.01 Personal history of pneumonia (recurrent); Z87.442 Personal history of urinary calculi; Z87.440 Personal history of urinary (tract) infections; Z90.710 Acquired absence of both cervix and uterus; Z98.51 Tubal ligation status; Z98.890 Other specified postprocedural states; Z56.0 Unemployment, unspecified; Z88.0 Allergy status to penicillin; Z88.1 Allergy status to other antibiotic agents; Z88.8 Allergy status to other drugs, medicaments and biological substances; Z79.899 Other long term (current) drug therapy
CPT/HCPCS: 81003; 81025; 96372; 99283; J1885

== ENCOUNTER 2022-01-20 22:35 | Emergency (ER) | payer MEDICARE, MEDICAID ==
[~2022-01-20] VITALS: Ht 165.1 cm; Wt 80.0 kg
[~2022-01-20 22:35] MED LIST changes: +OXYC5CAP19 PO
[2022-01-20 23:19] LABS: CLARITY,URINE SLIGHTLY CLOUDY (Clear); COLOR,URINE YELLOW (Yellow); GLUCOSE, URINE NEGATIVE (Neg); KETONES,URINE NEGATIVE (Neg); LEUKOCYTE ESTERASE ,URINE NEGATIVE (Neg); NITRITES, URINE NEGATIVE (Neg); OCCULT BLOOD,URINE NEGATIVE (Neg); PROTEIN,URINE NEGATIVE (Neg)
[2022-01-20 23:26] LABS: UA COLLECTION TYPE CLN CATCH MIDSTREAM
[2022-01-20 23:29] LABS: BACTERIA,URINE FEW /HPF (Neg); MUCUS STRANDS FEW /LPF (Neg); RBC,URINE 0-2 /HPF (0-2); SQUAMOUS EPITHELIAL CELL,UR MANY /LPF (FEW); WBC,URINE 0-4 /HPF (0-4)
[2022-01-20 23:35] LABS: BASOPHILS # (AUTO) 0.1 X10'3 (0-0.2); BASOPHILS % (AUTO) 0.6 % (0-1); EOSINOPHILS # (AUTO) 0.2 X10'3 (0-0.9); EOSINOPHILS % (AUTO) 2.8 % (0-6); HEMATOCRIT 34.8 % (35.0-45.0); HEMOGLOBIN 11.7 g/dl (12.0-16.0); LYMPHOCYTES # (AUTO) 2.5 X10'3 (1.1-4.8); LYMPHOCYTES % (AUTO) 28.9 % (21-51); MEAN CORPUSCULAR HEMOGLOBIN 27.4 PG (27.0-31.0); MEAN CORPUSCULAR HGB CONC 33.6 g/dL (33.0-36.5); MEAN CORPUSCULAR VOLUME 81.7 FL (78-98); MONOCYTES # (AUTO) 0.4 X10'3 (0-0.9); MONOCYTES % (AUTO) 5.2 % (2-12); NEUTROPHILS # (AUTO) 5.4 X10'3 (1.8-7.7); NEUTROPHILS % (AUTO) 62.5 % (42-75); PLATELET COUNT 332 X10'3 (140-440); RED BLOOD COUNT 4.25 X10'6 (4.20-5.60); WHITE BLOOD COUNT 8.6 X10'3 (4.5-11.0)
[2022-01-21] MEDS ORDERED: ondansetron/PF 4mg/2ml inj IM ONE
[2022-01-21] MEDS ORDERED: ketorolac trometh inj. 60 MG/2 ML VIAL IM ONE
[2022-01-21 00:07] LABS: ALANINE AMINOTRANSFERASE 20 U/L (12-78); ALBUMIN 3.6 G/DL (3.4-5.0); ALBUMIN/GLOBULIN RATIO 1.2 (1.1-1.5); ALKALINE PHOSPHATASE 161 IU/L (46-116); ANION GAP 8 (8-16); ASPARTATE AMINO TRANSFERASE 13 U/L (10-37); BILIRUBIN,TOTAL 0.3 MG/DL (0.1-1.0); BLOOD UREA NITROGEN 9 MG/DL (7-18); BUN/CREATININE RATIO 11.3 (6.6-38.0); CALCIUM 8.7 MG/DL (8.5-10.1); CHLORIDE 106 MMOL/L (99-107); GLUCOSE 84 MG/DL (70-104); POTASSIUM 3.8 MMOL/L (3.5-5.1); SODIUM 141 MMOL/L (135-145); TOTAL CARBON DIOXIDE 26.8 MMOL/L (24-32); TOTAL PROTEIN 6.6 G/DL (6.4-8.2); eGFR 81 ML/MIN
[2022-01-21 00:13] LABS: BETA HCG,QUANTITATIVE < 1.0 mIU/ml
[2022-01-21] MEDS ORDERED: morphine 4 MG/ML inj SYRINge IM ONE (03:25)
[2022-01-21 03:58] VITALS: BP 140/86
== END 2022-01-21 04:04 | disposition home or self-care (01) ==
LOC: ER 22:36
DX: R10.9 Unspecified abdominal pain (principal); G43.909 Migraine, unspecified, not intractable, without status migrainosus; E78.00 Pure hypercholesterolemia, unspecified; J45.909 Unspecified asthma, uncomplicated; G89.29 Other chronic pain; M54.50 Low back pain, unspecified; F31.9 Bipolar disorder, unspecified; Z98.51 Tubal ligation status; Z56.0 Unemployment, unspecified
CPT/HCPCS: 74176; 80053; 81001; 84145; 84702; 85025; 96372; 99284; J1885; J2270; J2405

== ENCOUNTER 2022-02-16 20:57 | Emergency (ER) | payer MEDICARE, MEDICAID ==
[~2022-02-16] VITALS: Ht 165.1 cm; Wt 81.8 kg
[2022-02-17] MEDS ORDERED: HYDR-3965 PO (00:56)
[2022-02-17] MEDS: fentaNYL/PF 50MCG/1 ML 2ML syringe IM ONE (01:22)
[2022-02-17] MEDS: ondansetron 4mg rapidly disintigrating tab PO ONE (01:23)
[2022-02-17] MEDS: acetaminophen 325mg tablet PO ONE (01:23)
[2022-02-17 01:33] VITALS: BP 124/78
== END 2022-02-17 01:35 | disposition home or self-care (01) ==
LOC: ER 20:58
DX: M25.571 Pain in right ankle and joints of right foot (principal); G43.909 Migraine, unspecified, not intractable, without status migrainosus; E78.00 Pure hypercholesterolemia, unspecified; F41.9 Anxiety disorder, unspecified; F31.9 Bipolar disorder, unspecified; G89.29 Other chronic pain; J45.909 Unspecified asthma, uncomplicated; Z87.01 Personal history of pneumonia (recurrent); Z87.442 Personal history of urinary calculi; Z87.440 Personal history of urinary (tract) infections; Z90.710 Acquired absence of both cervix and uterus; Z98.51 Tubal ligation status; Z98.890 Other specified postprocedural states; Z56.0 Unemployment, unspecified; Z88.0 Allergy status to penicillin; Z88.1 Allergy status to other antibiotic agents; Z88.8 Allergy status to other drugs, medicaments and biological substances; Z79.899 Other long term (current) drug therapy
CPT/HCPCS: 73610; 96372; 99283; J3010

== ENCOUNTER 2022-02-20 02:07 | Emergency (ER) | payer MEDICARE, MEDICAID ==
[~2022-02-20] VITALS: Ht 165.1 cm; Wt 81.8 kg
[~2022-02-20 02:07] MED LIST changes: +HYDR-3965 PO
[2022-02-20 02:13] VITALS: BP 112/52
[2022-02-20] MEDS ORDERED: HYDROcodone/acetaminophen 5mg/325mg tablet PO ONE (04:00)
== END 2022-02-20 04:15 | disposition home or self-care (01) ==
LOC: ER 02:08
DX: M25.571 Pain in right ankle and joints of right foot (principal); G43.909 Migraine, unspecified, not intractable, without status migrainosus; E78.00 Pure hypercholesterolemia, unspecified; J45.909 Unspecified asthma, uncomplicated; G89.29 Other chronic pain; M54.50 Low back pain, unspecified; F31.9 Bipolar disorder, unspecified; Z88.8 Allergy status to other drugs, medicaments and biological substances; Z88.1 Allergy status to other antibiotic agents; Z88.0 Allergy status to penicillin; Z90.710 Acquired absence of both cervix and uterus; Z98.51 Tubal ligation status; Z56.0 Unemployment, unspecified
CPT/HCPCS: 99284

== ENCOUNTER 2022-04-22 18:07 | Emergency (ER) | payer MEDICARE, MEDICAID ==
[~2022-04-22] VITALS: Ht 165.1 cm; Wt 65.0 kg
[~2022-04-22 18:07] MED LIST changes: -HYDR-3965 PO
[2022-04-22 18:10] VITALS: BP 116/43
[2022-04-22] MEDS ORDERED: acetaminophen 325mg tablet PO ONE (19:40)
[2022-04-22] MEDS ORDERED: ibuprofen tablet 400 MG TABLET PO ONE (19:40)
[2022-04-22] MEDS ORDERED: TRAM50TA2 PO (19:41)
== END 2022-04-22 20:00 | disposition home or self-care (01) ==
LOC: ER 18:08
DX: M25.532 Pain in left wrist (principal); J45.909 Unspecified asthma, uncomplicated; G89.29 Other chronic pain; F31.9 Bipolar disorder, unspecified; G43.909 Migraine, unspecified, not intractable, without status migrainosus; Z88.0 Allergy status to penicillin; Z88.8 Allergy status to other drugs, medicaments and biological substances; Z79.899 Other long term (current) drug therapy; Z88.2 Allergy status to sulfonamides
CPT/HCPCS: 73110; 99283

== ENCOUNTER 2022-08-20 19:03 | Emergency (ER) | payer BC, MEDICAID ==
[~2022-08-20] VITALS: Ht 165.1 cm; Wt 77.2 kg
[2022-08-20] MEDS ORDERED: ondansetron 4mg rapidly disintigrating tab PO ONE (22:30)
[2022-08-20] MEDS ORDERED: acetaminophen 325mg tablet PO ONE (22:30)
[2022-08-20 23:38] VITALS: BP 120/78
[2022-08-21] MEDS ORDERED: HYDR-3965 PO (16:02)
[2022-08-21] MEDS ORDERED: ONDA4TAB12 PO (16:02)
== END 2022-08-20 23:44 | disposition home or self-care (01) ==
LOC: ER 19:04
DX: S40.012A Contusion of left shoulder, initial encounter (principal); S09.90XA Unspecified injury of head, initial encounter; G43.909 Migraine, unspecified, not intractable, without status migrainosus; E78.00 Pure hypercholesterolemia, unspecified; J45.909 Unspecified asthma, uncomplicated; G89.29 Other chronic pain; F31.9 Bipolar disorder, unspecified; F41.9 Anxiety disorder, unspecified; Z87.442 Personal history of urinary calculi; Z90.710 Acquired absence of both cervix and uterus; Z98.51 Tubal ligation status; Z98.890 Other specified postprocedural states; Z56.0 Unemployment, unspecified; Z88.0 Allergy status to penicillin; Z88.1 Allergy status to other antibiotic agents; Z79.899 Other long term (current) drug therapy; W18.39XA Other fall on same level, initial encounter; Y93.89 Activity, other specified; Y92.89 Other specified places as the place of occurrence of the external cause; Y99.8 Other external cause status
CPT/HCPCS: 70450; 73030; 99284

== ENCOUNTER 2022-08-21 15:07 | Emergency (ER) | payer BC, MEDICAID ==
[~2022-08-21] VITALS: Ht 165.1 cm; Wt 77.3 kg
[2022-08-21 15:13] VITALS: BP 97/45
[2022-08-21] MEDS ORDERED: ONDA4TAB12 PO (16:02)
[2022-08-21] MEDS ORDERED: HYDR-3965 PO (16:02)
[2022-08-21] MEDS ORDERED: morphine 4 MG/ML inj SYRINge IM ONE (16:10)
[2022-08-21] MEDS ORDERED: ondansetron 4mg rapidly disintigrating tab PO ONE (16:10)
== END 2022-08-21 16:49 | disposition home or self-care (01) ==
LOC: ER 15:08
DX: S06.0X0A Concussion without loss of consciousness, initial encounter (principal); E78.00 Pure hypercholesterolemia, unspecified; J45.909 Unspecified asthma, uncomplicated; G89.29 Other chronic pain; M54.9 Dorsalgia, unspecified; F31.9 Bipolar disorder, unspecified; G43.909 Migraine, unspecified, not intractable, without status migrainosus; Z59.00 Homelessness unspecified; Z88.0 Allergy status to penicillin; Z88.1 Allergy status to other antibiotic agents; Z79.899 Other long term (current) drug therapy; Z79.1 Long term (current) use of non-steroidal anti-inflammatories (NSAID); Z79.2 Long term (current) use of antibiotics; W18.39XA Other fall on same level, initial encounter; Y93.89 Activity, other specified; Y92.89 Other specified places as the place of occurrence of the external cause; Y99.8 Other external cause status
CPT/HCPCS: 96372; 99283; J2270

== ENCOUNTER 2022-08-22 21:44 | Emergency (ER) | payer BC, MEDICAID ==
[~2022-08-22] VITALS: Ht 165.1 cm; Wt 77.3 kg
[~2022-08-22 21:44] MED LIST changes: +HYDR-3965 PO; +ONDA4TAB12 PO
[2022-08-23] MEDS ORDERED: ERYT1OIN6 LEFTEYE (05:03)
[2022-08-23] MEDS ORDERED: TETRACAINE 0.5% 4 ML OPHTHALMIC DROPS LEFTEYE ONE (05:05)
[2022-08-23] MEDS ORDERED: ibuprofen tablet 400 MG TABLET PO ONE (05:05)
[2022-08-23] MEDS ORDERED: acetaminophen 325mg tablet PO ONE (05:05)
--- NOTE | 2022-08-23 05:26 | NUR ---
MD AT BEDSIDE FOR EYE EXAM,
[2022-08-23 05:47] VITALS: BP 126/89
== END 2022-08-23 05:50 | disposition home or self-care (01) ==
LOC: ER 21:45
DX: S00.12XA Contusion of left eyelid and periocular area, initial encounter (principal); H10.32 Unspecified acute conjunctivitis, left eye; I11.9 Hypertensive heart disease without heart failure; G43.909 Migraine, unspecified, not intractable, without status migrainosus; J45.909 Unspecified asthma, uncomplicated; G89.29 Other chronic pain; M54.9 Dorsalgia, unspecified; F31.9 Bipolar disorder, unspecified; E78.00 Pure hypercholesterolemia, unspecified; Z59.00 Homelessness unspecified; Z88.0 Allergy status to penicillin; Z88.1 Allergy status to other antibiotic agents; Z88.8 Allergy status to other drugs, medicaments and biological substances; Z79.899 Other long term (current) drug therapy; Z79.1 Long term (current) use of non-steroidal anti-inflammatories (NSAID); X58.XXXA Exposure to other specified factors, initial encounter; Y93.89 Activity, other specified; Y92.89 Other specified places as the place of occurrence of the external cause; Y99.8 Other external cause status
CPT/HCPCS: 99284; 99285

== ENCOUNTER 2022-10-14 22:49 | Emergency (ER) | payer BC, MEDICAID ==
[~2022-10-14] VITALS: Ht 165.1 cm; Wt 77.3 kg
[~2022-10-14 22:49] MED LIST changes: -HYDR-3965 PO
[2022-10-14 22:54] VITALS: BP 97/61
[2022-10-15 00:21] LABS: URINE HCG NEGATIVE (NEG)
[2022-10-15 00:22] LABS: COLOR,URINE STRAW (Yellow); GLUCOSE, URINE NEGATIVE (Neg); KETONES,URINE NEGATIVE (Neg); LEUKOCYTE ESTERASE ,URINE NEGATIVE (Neg); NITRITES, URINE POSITIVE (Neg); OCCULT BLOOD,URINE NEGATIVE (Neg); PROTEIN,URINE NEGATIVE (Neg); UROBILINOGEN,URINE 0.2 E.U/dL (0.2-1.0)
[2022-10-15 00:30] LABS: UA COLLECTION TYPE CLN CATCH MIDSTREAM
[2022-10-15 00:31] LABS: CLARITY,URINE SLIGHTLY CLOUDY (Clear)
[2022-10-15 00:33] LABS: BACTERIA,URINE 4+ /HPF (Neg); MUCUS STRANDS FEW /LPF (Neg); RBC,URINE 0-2 /HPF (0-2); SQUAMOUS EPITHELIAL CELL,UR FEW /LPF (FEW); WBC,URINE 0-4 /HPF (0-4)
[2022-10-15] MEDS ORDERED: SULF1TAB49 PO (00:58)
[2022-10-15] MEDS ORDERED: HYDROcodone/acetaminophen 10/325mg tab PO ONE (01:00)
[2022-10-15] MEDS ORDERED: sulfamethoxazole/trimethoprim DS (800/160mg) tablet PO ONE (01:00)
== END 2022-10-15 01:18 | disposition home or self-care (01) ==
LOC: ER 22:50
DX: N39.0 Urinary tract infection, site not specified (principal); M54.50 Low back pain, unspecified; G43.909 Migraine, unspecified, not intractable, without status migrainosus; E78.00 Pure hypercholesterolemia, unspecified; F31.9 Bipolar disorder, unspecified; F17.200 Nicotine dependence, unspecified, uncomplicated; Z88.0 Allergy status to penicillin; Z88.1 Allergy status to other antibiotic agents; Z88.8 Allergy status to other drugs, medicaments and biological substances; Z90.710 Acquired absence of both cervix and uterus; Z98.51 Tubal ligation status; Z56.0 Unemployment, unspecified
CPT/HCPCS: 81001; 81025; 87077; 87088; 87186; 99283

== ENCOUNTER 2022-12-17 20:23 | Emergency (ER) | payer BC, MEDICAID ==
[~2022-12-17] VITALS: Ht 165.1 cm; Wt 77.7 kg
--- NOTE | 2022-12-18 00:19 | NUR ---
Patient pacing room, states "is someone even going to see me?". Patient reassured that provider will see her as she is now in a room.
[2022-12-18] MEDS ORDERED: HYDROcodone/acetaminophen 5mg/325mg tablet PO ONE (01:25)
[2022-12-18 01:30] VITALS: BP 105/67
[2022-12-18] MEDS ORDERED: HYDR-3965 PO (02:44)
[2022-12-18] MEDS ORDERED: ondansetron/PF 4mg/2ml inj IV ONE (02:45)
[2022-12-18] MEDS ORDERED: normal saline 1000ML IV soln IVB ONE (02:45)
[2022-12-18] MEDS ORDERED: morphine 4 MG/ML inj SYRINge IV PRN (02:45)
== END 2022-12-18 03:09 | disposition home or self-care (01) ==
LOC: ER 20:24
DX: S61.217D Laceration without foreign body of left little finger without damage to nail, subsequent encounter (principal); G43.909 Migraine, unspecified, not intractable, without status migrainosus; E78.00 Pure hypercholesterolemia, unspecified; J45.909 Unspecified asthma, uncomplicated; F31.9 Bipolar disorder, unspecified; Z88.0 Allergy status to penicillin; Z88.1 Allergy status to other antibiotic agents; Z88.2 Allergy status to sulfonamides; Z90.710 Acquired absence of both cervix and uterus; Z98.51 Tubal ligation status; Z56.0 Unemployment, unspecified; W23.0XXD Caught, crushed, jammed, or pinched between moving objects, subsequent encounter
CPT/HCPCS: 73140; 99283

== ENCOUNTER 2023-01-12 17:37 | Emergency (ER) | payer BC, MEDICAID ==
[~2023-01-12] VITALS: Ht 165.1 cm; Wt 78.6 kg
[~2023-01-12 17:37] MED LIST changes: +HYDR-3965 PO
[2023-01-12 17:46] VITALS: BP 110/69; PULSE 111; TEMP 99.6; O2SAT 95
[2023-01-12] MEDS ORDERED: ketorolac tromethamine 15mg/ml inj. IM ONE (19:45)
[2023-01-12] MEDS ORDERED: HYDROcodone/acetaminophen 5mg/325mg tablet PO ONE ×2 (19:45→21:00)
[2023-01-12] MEDS ORDERED: cyclobenzaprine 10mg tablet PO ONE (19:45)
[2023-01-12] MEDS ORDERED: CYCL-1 PO (19:56)
[2023-01-12 21:05] VITALS: RESP 17
== END 2023-01-12 21:19 | disposition home or self-care (01) ==
LOC: ER 17:37
DX: M54.2 Cervicalgia (principal); G43.909 Migraine, unspecified, not intractable, without status migrainosus; E78.00 Pure hypercholesterolemia, unspecified; J45.909 Unspecified asthma, uncomplicated; F31.9 Bipolar disorder, unspecified; Z88.0 Allergy status to penicillin; Z88.1 Allergy status to other antibiotic agents; Z88.8 Allergy status to other drugs, medicaments and biological substances; Z91.030 Bee allergy status; Z79.899 Other long term (current) drug therapy; Z79.1 Long term (current) use of non-steroidal anti-inflammatories (NSAID); Z90.710 Acquired absence of both cervix and uterus; Z98.51 Tubal ligation status; Z56.0 Unemployment, unspecified
CPT/HCPCS: 96372; 99284; J1885

== ENCOUNTER 2023-02-08 15:16 | Emergency (ER) | payer BC, MEDICAID ==
[~2023-02-08] VITALS: Ht 165.1 cm; Wt 69.8 kg
[~2023-02-08 15:16] MED LIST changes: +CYCL-1 PO; -HYDR-3965 PO
[2023-02-08 15:21] VITALS: BP 125/86; PULSE 114; RESP 18; TEMP 97.8; O2SAT 96
[2023-02-08] MEDS ORDERED: PRED20TA PO (16:49)
[2023-02-08] MEDS ORDERED: CYCL-1 PO (16:49)
[2023-02-08] MEDS ORDERED: diazepam inj 5 MG/ML inj. IM ONE (16:50)
[2023-02-08] MEDS ORDERED: ketorolac trometh inj. 60 MG/2 ML VIAL IM ONE (16:59)
[2023-02-12] MEDS ORDERED: NAPR-56 PO (23:28)
== END 2023-02-08 17:09 | disposition home or self-care (01) ==
LOC: ER 15:17
DX: S16.1XXA Strain of muscle, fascia and tendon at neck level, initial encounter (principal); M54.12 Radiculopathy, cervical region; E78.00 Pure hypercholesterolemia, unspecified; G43.909 Migraine, unspecified, not intractable, without status migrainosus; G89.29 Other chronic pain; M54.9 Dorsalgia, unspecified; F31.9 Bipolar disorder, unspecified; X58.XXXA Exposure to other specified factors, initial encounter; Y93.89 Activity, other specified; Y92.89 Other specified places as the place of occurrence of the external cause; Y99.8 Other external cause status
CPT/HCPCS: 96372; 99284; J1885; J3360

== ENCOUNTER 2023-03-10 10:58 | Emergency (ER) | payer BC, MEDICAID ==
[~2023-03-10] VITALS: Ht 165.1 cm; Wt 69.0 kg
[~2023-03-10 10:58] MED LIST changes: +PRED20TA PO
[2023-03-10 11:09] VITALS: BP 117/70; PULSE 117; RESP 18; TEMP 99; O2SAT 100
== END 2023-03-10 16:51 | disposition left against medical advice (07) ==
LOC: ER 10:59
DX: M54.2 Cervicalgia (principal); Z53.21 Procedure and treatment not carried out due to patient leaving prior to being seen by health care provider
CPT/HCPCS: 99281

== ENCOUNTER 2023-04-13 16:28 | Emergency (ER) | payer BC, MEDICAID ==
[~2023-04-13] VITALS: Ht 165.1 cm; Wt 69.2 kg
[~2023-04-13 16:28] MED LIST changes: -PRED20TA PO
[2023-04-13 17:29] LABS: BILIRUBIN,URINE SMALL (Neg); CLARITY,URINE SLIGHTLY CLOUDY (Clear); COLOR,URINE YELLOW (Yellow); GLUCOSE, URINE NEGATIVE (Neg); KETONES,URINE TRACE mg/dl (Neg); LEUKOCYTE ESTERASE ,URINE TRACE (Neg); NITRITES, URINE NEGATIVE (Neg); OCCULT BLOOD,URINE NEGATIVE (Neg); PH,URINE 7.5 (4.8-8.0); PROTEIN,URINE TRACE mg/dl (Neg); UROBILINOGEN,URINE 0.2 E.U/dL (0.2-1.0)
[2023-04-13 17:31] LABS: URINE HCG NEGATIVE (NEG)
[2023-04-13 17:37] LABS: UA COLLECTION TYPE VOIDED
[2023-04-13 17:38] LABS: MUCUS STRANDS MANY /LPF (Neg); SQUAMOUS EPITHELIAL CELL,UR MANY /LPF (FEW)
[2023-04-13 17:39] LABS: BACTERIA,URINE 2+ /HPF (Neg); RBC,URINE 0-2 /HPF (0-2)
[2023-04-13 17:49] LABS: URINE AMPHETAMINE SCREEN NEGATIVE (Neg); URINE BARBITUATE SCREEN NEGATIVE (Neg); URINE BENZODIAZEPINES SCREEN POSITIVE (Neg); URINE CANNABINOID SCREEN NEGATIVE (Neg); URINE COCAINE SCREEN NEGATIVE (Neg); URINE OPIATE SCREEN NEGATIVE (Neg); URINE PHENCYCLIDINE SCREEN NEGATIVE (Neg)
--- NOTE | 2023-04-13 17:50 | NUR ---
I have reviewed and agree with all interventions, assessments performed and documented by TIANA Alvarenga.
[2023-04-13] MEDS ORDERED: LORazepam 2 mg/ml vial IM ONE (18:00)
--- NOTE | 2023-04-13 18:40 | NUR ---
pt sitting in room quietly, food provided along with warm blankets.
[2023-04-13 18:58] LABS: BASOPHILS % (AUTO) 0.3 % (0-1); EOSINOPHILS % (AUTO) 0 % (0-6); HEMATOCRIT 39.8 % (35.0-45.0); HEMOGLOBIN 13.1 g/dl (12.0-16.0); LYMPHOCYTES # (AUTO) 1.4 X10'3 (1.1-4.8); LYMPHOCYTES % (AUTO) 14.6 % (21-51); MEAN CORPUSCULAR HEMOGLOBIN 28.5 PG (27.0-31.0); MEAN CORPUSCULAR HGB CONC 32.9 g/dL (33.0-36.5); MEAN CORPUSCULAR VOLUME 86.5 FL (78-98); MEAN PLATELET VOLUME 7.7 FL (7.4-10.4); MONOCYTES # (AUTO) 0.5 X10'3 (0-0.9); MONOCYTES % (AUTO) 5.6 % (2-12); NEUTROPHILS # (AUTO) 7.6 X10'3 (1.8-7.7); NEUTROPHILS % (AUTO) 79.5 % (42-75); PLATELET COUNT 257 X10'3 (140-440); RED CELL DISTRIBUTION WIDTH 15.3 % (11.5-14.5); WHITE BLOOD COUNT 9.5 X10'3 (4.5-11.0)
[2023-04-13 19:11] LABS: ALANINE AMINOTRANSFERASE 21 U/L (12-78); ALBUMIN 3.5 G/DL (3.4-5.0); ALBUMIN/GLOBULIN RATIO 0.9 (1.1-1.5); ALKALINE PHOSPHATASE 149 IU/L (46-116); ANION GAP 7 (8-16); ASPARTATE AMINO TRANSFERASE 20 U/L (10-37); BILIRUBIN,TOTAL 0.6 MG/DL (0.1-1.0); BLOOD UREA NITROGEN 6 MG/DL (7-18); BUN/CREATININE RATIO 8.2 (10.0-20.0); CALCIUM 9.4 MG/DL (8.5-10.1); CHLORIDE 102 MMOL/L (99-107); CREATININE 0.73 MG/DL (0.40-0.90); ETHANOL < 10 MG/DL (<10); GLUCOSE 81 MG/DL (70-104); POTASSIUM 3.4 MMOL/L (3.5-5.1); SODIUM 138 MMOL/L (135-145); TOTAL CARBON DIOXIDE 28.9 MMOL/L (24-32); TOTAL PROTEIN 7.2 G/DL (6.4-8.2); eCRCL 94 ML/MIN; eGFR 89 ML/MIN
--- NOTE | 2023-04-13 20:15 | NUR ---
Client ambulated to Bed 20 accompanied by [facility] RN at 20:15. Client self-presented to the ED for anxiety, auditory hallucinations, and depression. She reports a history of Bipolar DO with psychosis, depression, self-injury, and childhood trauma. Client stated "My family won't have anything to do with me." (Referring to Mother and siblings.) "I feel like I'm going to have a nervous breakdown." She is currently living in [place] with her and 15 yo daughter. She has a longstanding mental health history and receive's services through [facility]. Denies SI/HI. Endorses desire to cut/burn self. Reports hearing voices. She is disheveled. Affect and mood are anxious.
[2023-04-13] MEDS ORDERED: CHOL50004 PO (20:47)
[2023-04-13] MEDS ORDERED: LAMO150T2 PO (20:48)
[2023-04-13] MEDS ORDERED: EST1T PO (20:49)
[2023-04-13] MEDS ORDERED: BACL-11 PO (20:50)
[2023-04-13] MEDS ORDERED: TRAZ150T78 PO (20:50)
[2023-04-13] MEDS ORDERED: GUAN2TAB19 PO (20:51)
[2023-04-13] MEDS ORDERED: LUMA42CA PO (20:53)
[2023-04-13] MEDS ORDERED: CLON-527 PO (20:55)
[2023-04-13] MEDS ORDERED: ATOR40TA PO (20:57)
[2023-04-13] MEDS ORDERED: DOCU-148 PO (20:58)
[2023-04-13] MEDS ORDERED: ALB0.5UD IH (20:58)
[2023-04-13] MEDS ORDERED: OLANZapine 2.5MG tablet PO SCH (21:00)
[2023-04-13] MEDS ORDERED: olanzapine 10mg tablet PO SCH (21:19)
[2023-04-13] MEDS ORDERED: clonazePAM 1mg tablet PO PRN (21:30)
[2023-04-13] MEDS ORDERED: traZODone 150mg tablet PO SCH (21:30)
[2023-04-13] MEDS ORDERED: ibuprofen tablet 400 MG TABLET PO PRN (21:30)
--- NOTE | 2023-04-13 21:30 | NUR ---
Client reported anxiety and requested "something for psychosis". An order for 10 mg Zyprexa Tab PO was obtained. Client to received 150 mg Trazodone Tab PO for sleep. Standing near bed, wrapped in a blanket, watching the RN station.
[2023-04-13] MEDS ORDERED: albuterol 2.5 MG/3 ML nebule NEB PRN (21:35)
--- NOTE | 2023-04-13 22:29 | NUR ---
Client is resting in bed. Resp even and unlabored.
[2023-04-14] MEDS ORDERED: cyclobenzaprine 10mg tablet PO SCH
--- NOTE | 2023-04-14 00:15 | NUR ---
Asleep. Resp even and unlabored. Client needs a set of Vital Signs. Tech will obtain when client wakes.
--- NOTE | 2023-04-14 03:00 | NUR ---
Sleeping on her back. Resp even and unlabored.
--- NOTE | 2023-04-14 05:00 | NUR ---
Resting on back. Resp even and unlabored.
[2023-04-14 05:28] VITALS: BP 111/75; PULSE 86; TEMP 98.2; O2SAT 95
--- NOTE | 2023-04-14 06:56 | NUR ---
Note jhoan in EDM - 04/14/23 at 0658 by ANGEL Patient awake and agitated. Patient appears to feel persecuted by staff. Continue to monitor.
--- NOTE | 2023-04-14 06:58 | NUR ---
Patient is awake and laying in bed. No distress observed. Continue to monitor.
[2023-04-14 07:50] VITALS: RESP 16
[2023-04-14] MEDS ORDERED: baclofen 10mg tablet PO PRN (08:00)
[2023-04-14] MEDS ORDERED: estradiol 1mg tablet PO SCH (08:00)
[2023-04-14] MEDS ORDERED: docusate sod 100mg capsule PO SCH (08:00)
[2023-04-14] MEDS ORDERED: naproxen 500mg tablet PO SCH (08:00)
[2023-04-14] MEDS ORDERED: lamoTRIgine 25mg tablet PO SCH (08:00)
[2023-04-14] MEDS ORDERED: atorvastatin 20mg tablet PO SCH (08:00)
[2023-04-14] MEDS ORDERED: lamoTRIgine 100mg tablet PO SCH (08:00)
[2023-04-14] MEDS ORDERED: cholecalciferol (vitamin D3) 1,000 unit (25mcg) tablet PO SCH (08:00)
[2023-04-14] MEDS ORDERED: GUANFACINE HCL PO SCH (08:00)
--- NOTE | 2023-04-14 08:17 | NUR ---
Patient took meds earlier for anxiety and back pain and is feeling better. Patient is eating breakfast. No distress observed. Continue to monitor.
--- NOTE | 2023-04-14 10:25 | NUR ---
Patient ambulatory, steady gait to BR. No distress observed. Continue to monitor.
--- NOTE | 2023-04-14 10:58 | NUR ---
Patient wanting her second dose of Clonazepam. RN advised patient her second dose is not due until 7ish. Patient states she takes her second dose when she needs it and does not need to wait. RN explained to patient it is ordered q 12 hours as needed. Patient is not happy but verbalized understanding. Continue to monitor.
--- NOTE | 2023-04-14 11:17 | NUR ---
Shima SAENZ, evaluating patient. Continue to monitor.
== END 2023-04-14 11:55 | disposition home or self-care (01) ==
LOC: ER 16:29
DX: R45.851 Suicidal ideations (principal); Z20.822 Contact with and (suspected) exposure to COVID-19; G43.909 Migraine, unspecified, not intractable, without status migrainosus; E78.00 Pure hypercholesterolemia, unspecified; J45.909 Unspecified asthma, uncomplicated; G89.29 Other chronic pain; M54.9 Dorsalgia, unspecified; F31.9 Bipolar disorder, unspecified; Z90.49 Acquired absence of other specified parts of digestive tract; Z59.00 Homelessness unspecified; Z88.0 Allergy status to penicillin; Z88.1 Allergy status to other antibiotic agents; Z79.899 Other long term (current) drug therapy; Z88.8 Allergy status to other drugs, medicaments and biological substances
CPT/HCPCS: 36415; 80053; 80305; 80320; 81001; 81025; 85025; 87811; 96372; 99285; J2060

== ENCOUNTER 2023-05-10 17:26 | Emergency (ER) | payer BC, MEDICAID ==
[~2023-05-10] VITALS: Ht 165.1 cm; Wt 71.9 kg
[~2023-05-10 17:26] MED LIST changes: +ALB0.5UD IH; +ATOR40TA PO; +BACL-11 PO; +CHOL50004 PO; +CLON-527 PO; -CYCL-1 PO; -DIPH-423 PO; +DOCU-148 PO; +EST1T PO; +GUAN2TAB19 PO; -HYDR-4383 PO; -HYDR50TA65 PO; +LAMO150T2 PO; +LUMA42CA PO; -NAPR-56 PO; -ONDA4TAB12 PO; -OXYC5CAP19 PO; +TRAZ150T78 PO
[2023-05-10 18:19] VITALS: TEMP 98.5
[2023-05-10] MEDS ORDERED: ibuprofen tablet 400 MG TABLET PO ONE (19:15)
[2023-05-10] MEDS ORDERED: CYCL-1 PO (19:16)
[2023-05-10 20:12] VITALS: BP 122/75; PULSE 113; O2SAT 99
[2023-05-10 21:20] VITALS: RESP 16
[2023-05-10] MEDS ORDERED: ondansetron 4mg rapidly disintigrating tab PO ONE (21:20)
[2023-05-10] MEDS ORDERED: HYDROcodone/acetaminophen 5mg/325mg tablet PO ONE (21:20)
== END 2023-05-10 20:17 | disposition home or self-care (01) ==
LOC: ER 17:27
DX: S90.122A Contusion of left lesser toe(s) without damage to nail, initial encounter (principal); G43.909 Migraine, unspecified, not intractable, without status migrainosus; E78.00 Pure hypercholesterolemia, unspecified; J45.909 Unspecified asthma, uncomplicated; G89.29 Other chronic pain; M54.9 Dorsalgia, unspecified; F31.9 Bipolar disorder, unspecified; Z88.0 Allergy status to penicillin; Z88.1 Allergy status to other antibiotic agents; Z88.8 Allergy status to other drugs, medicaments and biological substances; Z79.899 Other long term (current) drug therapy
CPT/HCPCS: 73660; 99284

== ENCOUNTER 2023-10-02 00:03 | Emergency (ER) | payer BC, MEDICAID ==
[~2023-10-02] VITALS: Ht 165.1 cm; Wt 71.1 kg
[~2023-10-02 00:03] MED LIST changes: +CYCL-1 PO
[2023-10-02 02:09] LABS: BASOPHILS % (AUTO) 0.3 % (0-1); EOSINOPHILS % (AUTO) 0 % (0-6); HEMATOCRIT 40.5 % (35.0-45.0); HEMOGLOBIN 13.6 g/dl (12.0-16.0); LYMPHOCYTES # (AUTO) 1.8 X10'3 (1.1-4.8); LYMPHOCYTES % (AUTO) 22.4 % (21-51); MEAN CORPUSCULAR HEMOGLOBIN 29.4 PG (27.0-31.0); MEAN CORPUSCULAR HGB CONC 33.5 g/dL (33.0-36.5); MEAN CORPUSCULAR VOLUME 87.6 FL (78-98); MEAN PLATELET VOLUME 7.9 FL (7.4-10.4); MONOCYTES # (AUTO) 0.4 X10'3 (0-0.9); MONOCYTES % (AUTO) 4.9 % (2-12); NEUTROPHILS # (AUTO) 5.7 X10'3 (1.8-7.7); NEUTROPHILS % (AUTO) 72.4 % (42-75); PLATELET COUNT 278 X10'3 (140-440); RED BLOOD COUNT 4.62 X10'6 (4.20-5.60); RED CELL DISTRIBUTION WIDTH 15.1 % (11.5-14.5); WHITE BLOOD COUNT 7.9 X10'3 (4.5-11.0)
[2023-10-02] MEDS: LORazepam 1 MG tablet PO ONE (02:10)
[2023-10-02 02:16] LABS: ACETAMINOPHEN 2.9 UG/ML (10-30); ALBUMIN 3.5 G/DL (3.4-5.0); ANION GAP 8 (8-16); BLOOD UREA NITROGEN 13 MG/DL (7-18); BUN/CREATININE RATIO 17.6 (10.0-20.0); CALCIUM 9.1 MG/DL (8.5-10.1); CHLORIDE 104 MMOL/L (99-107); CREATININE 0.74 MG/DL (0.40-0.90); ETHANOL < 10 MG/DL (<10); GLUCOSE 97 MG/DL (70-104); POTASSIUM 3.8 MMOL/L (3.5-5.1); SODIUM 139 MMOL/L (135-145); TOTAL CARBON DIOXIDE 27.4 MMOL/L (24-32); eCRCL 92 ML/MIN; eGFR 87 ML/MIN
[2023-10-02] MEDS: haloperidol lactate 5mg/ml inj IM ONE (04:27)
[2023-10-02 10:03] LABS: URINE HCG NEGATIVE (NEG)
[2023-10-02 10:07] LABS: BILIRUBIN,URINE NEGATIVE (Neg); CLARITY,URINE SLIGHTLY CLOUDY (Clear); COLOR,URINE YELLOW (Yellow); GLUCOSE, URINE NEGATIVE (Neg); KETONES,URINE NEGATIVE (Neg); LEUKOCYTE ESTERASE ,URINE NEGATIVE (Neg); NITRITES, URINE NEGATIVE (Neg); OCCULT BLOOD,URINE NEGATIVE (Neg); PROTEIN,URINE NEGATIVE (Neg); UROBILINOGEN,URINE 0.2 E.U/dL (0.2-1.0)
[2023-10-02 10:14] LABS: UA COLLECTION TYPE CLN CATCH MIDSTREAM
[2023-10-02 10:18] LABS: URINE AMPHETAMINE SCREEN NEGATIVE (Neg); URINE BARBITUATE SCREEN NEGATIVE (Neg); URINE BENZODIAZEPINES SCREEN POSITIVE (Neg); URINE CANNABINOID SCREEN NEGATIVE (Neg); URINE COCAINE SCREEN NEGATIVE (Neg); URINE METHADONE SCREEN NEGATIVE (Neg); URINE OPIATE SCREEN POSITIVE (Neg); URINE PHENCYCLIDINE SCREEN NEGATIVE (Neg)
[2023-10-02 10:22] LABS: MUCUS STRANDS FEW /LPF (Neg); RBC,URINE 0-2 /HPF (0-2); SQUAMOUS EPITHELIAL CELL,UR MANY /LPF (FEW); WBC,URINE 0-4 /HPF (0-4)
[2023-10-02 10:23] LABS: BACTERIA,URINE FEW /HPF (Neg)
[2023-10-02 13:30] VITALS: BP 107/50; PULSE 97; RESP 14; TEMP 97.9; O2SAT 97
== END 2023-10-02 13:34 | disposition home or self-care (01) ==
LOC: ER 00:04
DX: F31.9 Bipolar disorder, unspecified (principal); Z20.822 Contact with and (suspected) exposure to COVID-19; E78.00 Pure hypercholesterolemia, unspecified; J45.909 Unspecified asthma, uncomplicated; G89.29 Other chronic pain; M54.9 Dorsalgia, unspecified; F41.9 Anxiety disorder, unspecified; Z90.710 Acquired absence of both cervix and uterus; Z98.51 Tubal ligation status; G43.909 Migraine, unspecified, not intractable, without status migrainosus; Z88.0 Allergy status to penicillin; Z88.8 Allergy status to other drugs, medicaments and biological substances
CPT/HCPCS: 36415; 80048; 80305; 80320; 80329; 81001; 81025; 85025; 87811; 96372; 99284; J1630; 99283

== ENCOUNTER 2023-10-04 20:54 | Emergency (ER) | payer BC, MEDICAID ==
[~2023-10-04] VITALS: Ht 165.1 cm; Wt 66.8 kg
[2023-10-04] MEDS ORDERED: HYDR-3965 PO (22:23)
[2023-10-04] MEDS: HYDROcodone/acetaminophen 5mg/325mg tablet PO ONE (22:25)
[2023-10-04 22:29] VITALS: BP 128/76; PULSE 69; RESP 17; TEMP 98.3; O2SAT 98
== END 2023-10-04 22:32 | disposition home or self-care (01) ==
LOC: ER 20:55
DX: S92.512A Displaced fracture of proximal phalanx of left lesser toe(s), initial encounter for closed fracture (principal); S90.32XA Contusion of left foot, initial encounter; Z88.0 Allergy status to penicillin; Z88.8 Allergy status to other drugs, medicaments and biological substances; Z88.1 Allergy status to other antibiotic agents; Z91.030 Bee allergy status; G43.909 Migraine, unspecified, not intractable, without status migrainosus; E78.00 Pure hypercholesterolemia, unspecified; J45.909 Unspecified asthma, uncomplicated; G89.29 Other chronic pain; M54.9 Dorsalgia, unspecified; F32.9 Major depressive disorder, single episode, unspecified; F41.9 Anxiety disorder, unspecified; Z90.710 Acquired absence of both cervix and uterus; Z98.51 Tubal ligation status; X58.XXXA Exposure to other specified factors, initial encounter; Y93.89 Activity, other specified; Y92.009 Unspecified place in unspecified non-institutional (private) residence as the place of occurrence of the external cause; Y99.8 Other external cause status
CPT/HCPCS: 73630; 99283; L3260; A6449

== ENCOUNTER 2023-10-06 19:53 | Emergency (ER) | payer BC, MEDICAID ==
[~2023-10-06] VITALS: Ht 165.1 cm; Wt 66.8 kg
[~2023-10-06 19:53] MED LIST changes: +HYDR-3965 PO
[2023-10-06 20:22] VITALS: BP 107/43; PULSE 89; TEMP 98.2; O2SAT 100
[2023-10-06] MEDS ORDERED: HYDR-3972 PO (21:38)
[2023-10-06 21:52] VITALS: RESP 20
[2023-10-06] MEDS: HYDROcodone/acetaminophen 10/325mg tab PO ONE (21:52)
== END 2023-10-06 22:06 | disposition home or self-care (01) ==
LOC: ER 19:53
DX: S92.512A Displaced fracture of proximal phalanx of left lesser toe(s), initial encounter for closed fracture (principal); S90.122A Contusion of left lesser toe(s) without damage to nail, initial encounter; Z88.0 Allergy status to penicillin; Z88.8 Allergy status to other drugs, medicaments and biological substances; Z88.1 Allergy status to other antibiotic agents; Z91.030 Bee allergy status; G43.909 Migraine, unspecified, not intractable, without status migrainosus; J45.909 Unspecified asthma, uncomplicated; E78.00 Pure hypercholesterolemia, unspecified; G89.29 Other chronic pain; M54.9 Dorsalgia, unspecified; F41.9 Anxiety disorder, unspecified; F32.9 Major depressive disorder, single episode, unspecified; Z90.710 Acquired absence of both cervix and uterus; Z98.51 Tubal ligation status; W19.XXXA Unspecified fall, initial encounter; Y93.89 Activity, other specified; Y92.89 Other specified places as the place of occurrence of the external cause; Y99.8 Other external cause status
CPT/HCPCS: 99283

== ENCOUNTER 2023-11-24 02:07 | Emergency (ER) | payer BC, MEDICAID ==
[~2023-11-24] VITALS: Ht 165.1 cm; Wt 66.8 kg
[2023-11-24] MEDS ORDERED: ketorolac trometh. 30mg/ml inj. IV ONE (02:20)
[2023-11-24] MEDS: ondansetron/PF 4mg/2ml inj IV ONE (02:24)
[2023-11-24] MEDS: ketorolac tromethamine 15mg/ml inj. IV ONE (02:37)
[2023-11-24] MEDS: metoclopramide 5 mg/ml inj IV ONE (03:08)
[2023-11-24 03:14] LABS: BASOPHILS # (AUTO) 0.2 X10'3 (0-0.2); BASOPHILS % (AUTO) 1.5 % (0-1); EOSINOPHILS % (AUTO) 0 % (0-6); HEMATOCRIT 39.4 % (35.0-45.0); HEMOGLOBIN 13.1 g/dl (12.0-16.0); LYMPHOCYTES # (AUTO) 1.2 X10'3 (1.1-4.8); LYMPHOCYTES % (AUTO) 10.1 % (21-51); MEAN CORPUSCULAR HEMOGLOBIN 28.8 PG (27.0-31.0); MEAN CORPUSCULAR HGB CONC 33.4 g/dL (33.0-36.5); MEAN CORPUSCULAR VOLUME 86.4 FL (78-98); MEAN PLATELET VOLUME 7.9 FL (7.4-10.4); MONOCYTES # (AUTO) 0.4 X10'3 (0-0.9); MONOCYTES % (AUTO) 3.5 % (2-12); NEUTROPHILS # (AUTO) 9.9 X10'3 (1.8-7.7); NEUTROPHILS % (AUTO) 84.9 % (42-75); PLATELET COUNT 324 X10'3 (140-440); RED BLOOD COUNT 4.56 X10'6 (4.20-5.60); RED CELL DISTRIBUTION WIDTH 14.4 % (11.5-14.5); WHITE BLOOD COUNT 11.7 X10'3 (4.5-11.0)
[2023-11-24 03:17] LABS: ALBUMIN 3.9 G/DL (3.4-5.0); ANION GAP 10 (8-16); BLOOD UREA NITROGEN 20 MG/DL (7-18); CALCIUM 9.4 MG/DL (8.5-10.1); CHLORIDE 105 MMOL/L (99-107); GLUCOSE 136 MG/DL (70-104); LIPASE 30 U/L (16-77); POTASSIUM 3.4 MMOL/L (3.5-5.1); SODIUM 142 MMOL/L (135-145); TOTAL CARBON DIOXIDE 26.8 MMOL/L (24-32); eCRCL 68 ML/MIN; eGFR 62 ML/MIN
[2023-11-24 03:37] VITALS: TEMP 98.3
[2023-11-24] MEDS: normal saline 1000ml 1,000 ML IV ONE (03:48)
[2023-11-24] MEDS: proCHLORperazine 10 MG/2 ml inj IV ONE (04:45)
[2023-11-24 05:09] LABS: HCG SERUM QL NEGATIVE
[2023-11-24] MEDS: morphine 4 MG/ML inj SYRINge IV ONE ×2 (05:29→09:08)
[2023-11-24 05:34] LABS: URINE AMPHETAMINE SCREEN NEGATIVE (Neg); URINE BARBITUATE SCREEN NEGATIVE (Neg); URINE BENZODIAZEPINES SCREEN NEGATIVE (Neg); URINE CANNABINOID SCREEN NEGATIVE (Neg); URINE COCAINE SCREEN NEGATIVE (Neg); URINE METHADONE SCREEN NEGATIVE (Neg); URINE PHENCYCLIDINE SCREEN NEGATIVE (Neg)
[2023-11-24 05:41] LABS: BILIRUBIN,URINE SMALL (Neg); CLARITY,URINE SLIGHTLY CLOUDY (Clear); COLOR,URINE YELLOW (Yellow); GLUCOSE, URINE NEGATIVE (Neg); KETONES,URINE 40 mg/dl (Neg); LEUKOCYTE ESTERASE ,URINE NEGATIVE (Neg); NITRITES, URINE NEGATIVE (Neg); OCCULT BLOOD,URINE TRACE-INTACT (Neg); PH,URINE 6.5 (4.8-8.0); PROTEIN,URINE TRACE mg/dl (Neg)
[2023-11-24 05:43] LABS: UA COLLECTION TYPE CLN CATCH MIDSTREAM
[2023-11-24 05:52] LABS: BACTERIA,URINE 1+ /HPF (Neg); CAL OXALATE CRYSTALS 3+ /HPF (NEGATIVE); MUCUS STRANDS MODERATE /LPF (Neg); SQUAMOUS EPITHELIAL CELL,UR MANY /LPF (FEW); WBC,URINE 0-4 /HPF (0-4)
[2023-11-24 07:31] VITALS: BP 103/54; PULSE 61; O2SAT 95
[2023-11-24 09:08] VITALS: RESP 18
[2023-11-24] MEDS ORDERED: HYDR-3973 PO (10:05)
[2023-11-24] MEDS ORDERED: IBUP-1986 PO (10:05)
[2023-11-24] MEDS ORDERED: FLO0.4C PO (10:05)
[2023-11-24] MEDS ORDERED: ONDA4TAB12 PO (10:05)
== END 2023-11-24 12:07 | disposition home or self-care (01) ==
LOC: ER 02:08
DX: N23 Unspecified renal colic (principal); G43.909 Migraine, unspecified, not intractable, without status migrainosus; E78.00 Pure hypercholesterolemia, unspecified; J45.909 Unspecified asthma, uncomplicated; Z88.0 Allergy status to penicillin; Z88.1 Allergy status to other antibiotic agents; Z88.8 Allergy status to other drugs, medicaments and biological substances; Z91.030 Bee allergy status; Z79.899 Other long term (current) drug therapy; Z79.1 Long term (current) use of non-steroidal anti-inflammatories (NSAID); Z90.710 Acquired absence of both cervix and uterus; Z98.51 Tubal ligation status
CPT/HCPCS: 36415; 74176; 80048; 80305; 81001; 83690; 84703; 85025; 96361; 96374; 96375; 96376; 99285; J0780; J1885; J2270; J2405; J2765; J7030

== ENCOUNTER 2024-02-03 16:16 | Emergency (ER) | payer BC, MEDICAID ==
[~2024-02-03] VITALS: Ht 165.1 cm; Wt 70.4 kg
[~2024-02-03 16:16] MED LIST changes: +FLO0.4C PO; +HYDR-3973 PO; +IBUP-1986 PO; +ONDA-243 PO
[2024-02-03] MEDS ORDERED: ketorolac trometh 15mg/ml vial 15 MG/ML ML IM ONE (16:50)
[2024-02-03] MEDS: HYDROcodone/acetaminophen 10/325mg tab PO ONE (17:52)
[2024-02-03] MEDS ORDERED: CYCL-394 PO (18:03)
[2024-02-03] MEDS: cyclobenzaprine 10mg tablet PO ONE (18:27)
[2024-02-03 18:31] VITALS: BP 111/64; PULSE 68; RESP 14; TEMP 98.6; O2SAT 98
== END 2024-02-03 18:32 | disposition home or self-care (01) ==
LOC: ER 16:17
DX: M54.50 Low back pain, unspecified (principal); M54.12 Radiculopathy, cervical region; G43.909 Migraine, unspecified, not intractable, without status migrainosus; E78.00 Pure hypercholesterolemia, unspecified; J45.909 Unspecified asthma, uncomplicated; Z87.442 Personal history of urinary calculi; G89.29 Other chronic pain; M54.9 Dorsalgia, unspecified; F41.9 Anxiety disorder, unspecified; F32.A Depression, unspecified; Z90.710 Acquired absence of both cervix and uterus; Z98.890 Other specified postprocedural states; Z98.51 Tubal ligation status; Z56.0 Unemployment, unspecified; Z88.0 Allergy status to penicillin; Z88.1 Allergy status to other antibiotic agents; Z88.8 Allergy status to other drugs, medicaments and biological substances; Z79.899 Other long term (current) drug therapy; Z79.1 Long term (current) use of non-steroidal anti-inflammatories (NSAID)
CPT/HCPCS: 72040; 72100; 99284

== ENCOUNTER 2024-07-12 16:33 | Emergency (ER) | payer MEDICARE, MEDICAID ==
[~2024-07-12] VITALS: Ht 165.1 cm; Wt 74.3 kg
[2024-07-12 16:42] VITALS: BP 110/62; PULSE 102; RESP 18; TEMP 98.8; O2SAT 98
[2024-07-12] MEDS ORDERED: IBUP-1984 PO (17:10)
== END 2024-07-12 17:39 | disposition home or self-care (01) ==
LOC: ER 16:34
DX: K08.89 Other specified disorders of teeth and supporting structures (principal); E78.00 Pure hypercholesterolemia, unspecified; F31.9 Bipolar disorder, unspecified; G89.29 Other chronic pain; J45.909 Unspecified asthma, uncomplicated; Z88.0 Allergy status to penicillin; Z88.5 Allergy status to narcotic agent; Z88.6 Allergy status to analgesic agent; Z91.030 Bee allergy status; Z90.710 Acquired absence of both cervix and uterus; Z87.440 Personal history of urinary (tract) infections
CPT/HCPCS: 99281

== ENCOUNTER 2024-09-05 17:09 | Emergency (ER) | payer MEDICARE, MEDICAID ==
[~2024-09-05] VITALS: Ht 165.1 cm; Wt 73.6 kg
[2024-09-05 17:12] VITALS: BP 110/54; PULSE 109; O2SAT 100
[2024-09-05 17:38] VITALS: RESP 16
[2024-09-05] MEDS: HYDROcodone/acetaminophen 5mg/325mg tablet PO ONE (17:38)
[2024-09-05] MEDS ORDERED: HYDR-3965 PO (18:35)
[2024-09-05] MEDS: BUPIVAcaine/PF 2.5 mg/ml (0.25%) 30ml vial IJ ONE (18:39)
[2024-09-05 18:41] VITALS: TEMP 97.9
== END 2024-09-05 18:42 | disposition home or self-care (01) ==
LOC: ER 17:10
DX: S60.052A Contusion of left little finger without damage to nail, initial encounter (principal); E78.00 Pure hypercholesterolemia, unspecified; F31.9 Bipolar disorder, unspecified; J45.909 Unspecified asthma, uncomplicated; Z87.440 Personal history of urinary (tract) infections; Z88.0 Allergy status to penicillin; Z90.710 Acquired absence of both cervix and uterus; W23.0XXA Caught, crushed, jammed, or pinched between moving objects, initial encounter; Y93.89 Activity, other specified; Y92.89 Other specified places as the place of occurrence of the external cause; Y99.8 Other external cause status
CPT/HCPCS: 64450; 73140; 99283

== ENCOUNTER 2024-10-25 22:48 | Emergency (ER) | payer MEDICARE, MEDICAID ==
[~2024-10-25] VITALS: Ht 165.1 cm; Wt 81.4 kg
[~2024-10-25 22:48] MED LIST changes: -FLO0.4C PO; +TAMS-55 PO
[2024-10-25 22:51] VITALS: TEMP 98.3
[2024-10-25 23:48] LABS: BASOPHILS % (AUTO) 0.6 % (0-1); EOSINOPHILS % (AUTO) 0.1 % (0-6); HEMATOCRIT 36.1 % (35.0-45.0); HEMOGLOBIN 12.1 g/dl (12.0-16.0); LYMPHOCYTES # (AUTO) 1.7 X10'3 (1.1-4.8); LYMPHOCYTES % (AUTO) 30.1 % (21-51); MEAN CORPUSCULAR HEMOGLOBIN 28.8 PG (27.0-31.0); MEAN CORPUSCULAR HGB CONC 33.7 g/dL (33.0-36.5); MEAN CORPUSCULAR VOLUME 85.7 FL (78-98); MEAN PLATELET VOLUME 7.3 FL (7.4-10.4); MONOCYTES # (AUTO) 0.4 X10'3 (0-0.9); MONOCYTES % (AUTO) 7.8 % (2-12); NEUTROPHILS # (AUTO) 3.5 X10'3 (1.8-7.7); NEUTROPHILS % (AUTO) 61.4 % (42-75); PLATELET COUNT 284 X10'3 (140-440); RED BLOOD COUNT 4.21 X10'6 (4.20-5.60); RED CELL DISTRIBUTION WIDTH 14.5 % (11.5-14.5); WHITE BLOOD COUNT 5.7 X10'3 (4.5-11.0)
[2024-10-26 00:11] LABS: ALBUMIN 3.5 G/DL (3.4-5.0); ANION GAP 11 (8-16); BLOOD UREA NITROGEN 13 MG/DL (7-18); BUN/CREATININE RATIO 17.3 (10.0-20.0); CALCIUM 8.8 MG/DL (8.5-10.1); CHLORIDE 108 MMOL/L (99-107); CREATININE 0.75 MG/DL (0.40-0.90); ETHANOL < 10 MG/DL (<10); GLUCOSE 100 MG/DL (70-104); POTASSIUM 3.6 MMOL/L (3.5-5.1); SODIUM 143 MMOL/L (135-145); TOTAL CARBON DIOXIDE 23.6 MMOL/L (24-32); eCRCL 90 ML/MIN; eGFR 86 ML/MIN
[2024-10-26] MEDS ORDERED: OLANZapine 2.5MG tablet PO SCH (00:40)
[2024-10-26] MEDS: OLANZapine 2.5MG tablet PO ONE (01:18)
--- NOTE | 2024-10-26 02:41 | Physician Documentation ---
History of Present Illness ~ Chief Complaint: Mental Health Eval Stated Complaint: MH Time Seen by MD: 00:37 Primary Medical Doctor: [facility] Mode of Arrival: POV HPI 44-year-old female history of bipolar disorder presenting for increasing self- harm behavior, talk of cutting her wrists and hurting herself. Further history provided by her who is now at the bedside saying that she has been stressed the last several days and stressed about a upcoming holiday. He reports that she has waves of feeling overwhelmed and tonight she had increasing cutting behavior and some generalized suicidal thoughts with no plan. Medication Reconciliation Allergies: Coded Allergies: Penicillins (Verified Allergy, Unknown, 10/25/24) amoxicillin trihydrate (Unverified Allergy, Unknown, 10/25/24) potassium clavulanate (Unverified Allergy, Unknown, 10/25/24) quetiapine (Verified Allergy, Unknown, ITCHING SWELLING, 10/25/24) sumatriptan (Verified Allergy, Unknown, tongue swelling, 10/25/24) Uncoded Allergies: BEE STING (Allergy, Unknown, 01/12/23) Scheduled Atorvastatin Calcium* (Lipitor*), 1 TAB PO DAILY, (Reported) Cholecalciferol (Vitamin D3) (Vitamin D3), 1 CAP PO DAILY, (Reported) Estradiol* (Estrace*), 1 TAB PO DAILY, (Reported) Guanfacine HCl (Guanfacine HCl ER), 1 TAB PO DAILY, (Reported) Lamotrigine* (Lamictal*), 1 TAB PO DAILY, (Reported) Lumateperone Tosylate (Caplyta), 42 MG PO DAILY, (Reported) Mirtazapine (Remeron), 1 TAB PO HS, (Reported) Trazodone Hcl (Trazodone Hcl), 1 TAB PO HS, (Reported) Scheduled PRN Albuterol Sulfate Nebs* (Proventil Nebs*), 2.5 MG IH Q4H PRN for SOB or whe ezing, (Reported) Baclofen (Baclofen), 1 TAB PO Q8H PRN for muscle spasms, (Reported) Clonazepam* (Klonopin*), 2 MG PO Q12H PRN for anxiety, (Reported) Ibuprofen* (Motrin*), 400 MG PO Q8H PRN for pain, (Reported) Discontinued Medications Cyclobenzaprine* (Cyclobenzaprine*), 1 TAB PO TID Discontinued Reason: completed med therapy Docusate Sodium (Colace), 1 CAP PO Q12H, (Reported) Discontinued Reason: patient no longer taking Hydrocodone Bit/Acetaminophen 5/325 MG ([place] 5/325 MG), 1 TAB PO Q4H PRN for pain Discontinued Reason: patient no longer taking Hydrocodone Bit/Acetaminophen (Hydrocodone-Apap 10-325 Tablet), 1 TABLET PO Q6H PRN for pain Discontinued Reason: completed med therapy Ibuprofen (Ibuprofen), 1 TAB PO Q8H Discontinued Reason: completed med therapy ONDANSETRON ODT 4mg tablet (Ondansetron Odt), 1 TABLET PO Q6H PRN for nausea/vomiting Discontinued Reason: completed med therapy Tamsulosin Hcl* (Flomax*), 0.4 MG PO DAILY Discontinued Reason: completed med therapy Past Medical History Past Medical History: Migraine, High Cholesterol, Asthma, Pneumonia, Kidney Stones, UTI, Chronic Pain, Chronic Back Pain, Anxiety, Bipolar, Depression Past Surgical History: hysterectomy, orthopedic surgeries, tubal ligation Smoking Status: Never smoker Alcohol Use: None Drug Use: none Lives with: Family Lives In: Home Occupation: unemployed, disabled Review of Systems All Other Systems at this time: Reviewed and Negative Respiratory: Denies: orthopnea, SOB at rest Gastrointestinal: Denies: abdominal pain Neurological: Denies: headache Physical Exam Vital Signs: Temperature: 98.3, Source: Oral, Heart Rate: 101, Respiratory Rate: 16, BP: 131/82, Pulse Oximetry: 98, Weight: 81.400 Physical Exam Disheveled Head atraumatic Neuro awake alert disoriented Psych poor insight, rambling speech, Repeat exam at 4:50 a.m. Patient now much more coherent. She is requesting discharge She is alert oriented Psych good insight, normal speech, normal judgment Progress Progress Note now at bedside at 4:48 a.m. I discussed with him the patient's history leading up to today. The patient currently is feeling much improved following the Zyprexa and is requesting discharge. She no longer has any suicidal thoughts. I discussed this safety plan of this with her who thinks it is safe for her to come home with him. They have no firearms or weapons available to her. She plans to call her psychiatrist in the morning. Results/Orders Reviewed/noted all lab results: Yes Results/Orders Orders - BENIGNO ALMONTE MD Close Observation Level (10/25/24 23:11) Covid19 Binax Poc Result Entry (10/25/24 23:11) Regular Diet (10/26/24 Breakfast) Med Rec (10/26/24 02:34) 1799.11 (10/26/24 02:34) Close Observation Level (10/26/24 02:34) Completed Orders - BENIGNO ALMONTE MD Cbc/Diff (10/25/24 23:11) Urinalysis (10/25/24 23:11) Hcg, Ur Ql (10/25/24 23:11) Drug Screen, Urine (10/25/24 23:11) Ethanol (10/25/24 23:11) TSH (10/25/24 23:11) BMP (10/25/24 23:11) Olanzapine Tablet (Zyprexa Tablet) (10/26/24 00:40) Olanzapine Tablet (Zyprexa Tablet) (10/26/24 00:40) Olanzapine Im (Zyprexa I.M. Im On (10/26/24 02:15) Ketorolac Trometh 15mg/Ml Vial (Toradol (10/26/24 03:55) Lidocaine 2% Viscous (Xylocaine 2% Visco (10/26/24 03:55) Medications Received in ER Medications (Trade) Dose Ordered Sig/Breonna Route PRN Reason Start Time Stop Time Status Last Admin Dose Admin (ZyPREXA tablet) 5 mg ONCE ONCE PO 10/26/24 00:40 10/26/24 00:46 DC 10/26/24 01:18 5 MG (ZyPREXA I.M. IM ONLY) 5 mg ONCE ONCE IM 10/26/24 02:15 10/26/24 02:29 DC 10/26/24 03:26 5 MG (Toradol injection) 15 mg ONCE ONCE IM 10/26/24 03:55 10/26/24 03:56 DC 10/26/24 04:00 15 MG (Xylocaine 2% Viscous 15mL cup) 15 ml ONCE ONCE MM 10/26/24 03:55 10/26/24 03:56 DC 10/26/24 04:00 15 ML Vital Signs 10/25/24 10/25/24 10/26/24 10/26/24 22:51 23:03 03:01 04:00 Temp 98.3 Pulse 101 Resp 16 16 16 B/P (MAP) 131/82 Pulse Ox 98 Laboratory Tests Test 10/25/24 23:29 10/26/24 02:53 10/26/24 02:57 White Blood Count 5.7 Red Blood Count 4.21 Hemoglobin 12.1 Hematocrit 36.1 Mean Corpuscular Volume 85.7 Mean Corpuscular Hemoglobin 28.8 Mean Corpuscular Hemoglobin Concent 33.7 Red Cell Distribution Width 14.5 Platelet Count 284 Mean Platelet Volume 7.3 L Neutrophils (%) (Auto) 61.4 Lymphocytes (%) (Auto) 30.1 Monocytes (%) (Auto) 7.8 Eosinophils (%) (Auto) 0.1 Basophils (%) (Auto) 0.6 Neutrophils # (Auto) 3.5 Lymphocytes # (Auto) 1.7 Monocytes # (Auto) 0.4 Eosinophils # (Auto) 0.0 Basophils # (Auto) 0.0 CBC Comment Sodium Level 143 Potassium Level 3.6 Chloride Level 108 H Carbon Dioxide Level 23.6 L Anion Gap 11 Blood Urea Nitrogen 13 Creatinine 0.75 Estimated GFR/1.73 m2 86 BUN/Creatinine Ratio 17.3 Glucose Level 100 Calcium Level 8.8 Albumin 3.5 Thyroid Stimulating Hormone (TSH) 1.70 Chemistry Comments Ethyl Alcohol Level < 10 SARS-CoV-2 Antigen (Rapid) Negative Urine Specimen Description Cln catch midstream Urine Color Yellow Urine Clarity Clear Urine pH 5.5 Urine Specific [place] <=1.005 Urine Protein Negative Urine Glucose (UA) Negative Urine Ketones Negative Urine Occult Blood Negative Urine Nitrite Negative Urine Bilirubin Negative Urine Urobilinogen 0.2 Urine Leukocyte Esterase Negative Volume Urine Centrifuged 10 ml Urine HCG, Qualitative Negative Urine Comment Urine Opiates Screen Negative Urine Methadone Screen Negative Urine Fentanyl Screen Negative Urine Barbiturates Screen Negative Urine Phencyclidine Screen Negative Urine Amphetamines Screen Negative Urine Benzodiazepines Screen Negative Urine Cocaine Screen Negative Urine Cannabinoids Screen Negative Drug Screen Comment Medical Decision Making Additional info obtained from: old records, family Differential Dx:Considerations: Include: Alcohol abuse, Anxiety, Bipolar disorder, Conversion disorder Departure Disposition: 01 HOME / SELF CARE / HOMELESS Impression: Primary Impression: Anxiety Additional Impression Text Patient initially presented for some vague suicidal ideation. She was agitated on arrival however falling Zyprexa she had complete resolution of her anxiety and her suicidal thoughts. She never had a specific plan I personally discussed at bedside with her the safety plan for her and they do not feel like she is suicidal at this time. They do not want to stay for mental health evaluation. Patient was the 1 who initially came to the emergency department out of concern and now she is requesting discharge. I see no indication for further hold at this time Discharge Instructions: Medical Screening Exam Additional Instructions: Please call your mental health counselor and psychiatrist in the morning to let them know you were in the emergency department. If you have any reoccurrence of your thoughts or any specific plans of killing yourself please reach out to your and return to the emergency department for further evaluation and treatment Referrals: NO PRIMARY CARE PROVIDER (PCP) Signature Scribe Signature: na Attestation: BENIGNO Nguyen MD October 26, 2024 02:41
[2024-10-26] MEDS ORDERED: MIRT-142 PO (03:00)
[2024-10-26 03:16] LABS: BILIRUBIN,URINE NEGATIVE (Neg); CLARITY,URINE CLEAR (Clear); COLOR,URINE YELLOW (Yellow); GLUCOSE, URINE NEGATIVE (Neg); KETONES,URINE NEGATIVE (Neg); LEUKOCYTE ESTERASE ,URINE NEGATIVE (Neg); NITRITES, URINE NEGATIVE (Neg); OCCULT BLOOD,URINE NEGATIVE (Neg); PH,URINE 5.5 (4.8-8.0); PROTEIN,URINE NEGATIVE (Neg); URINE HCG NEGATIVE (NEG); UROBILINOGEN,URINE 0.2 E.U/dL (0.2-1.0)
[2024-10-26 03:22] LABS: UA COLLECTION TYPE CLN CATCH MIDSTREAM
[2024-10-26] MEDS: OLANZapine **IM** 10 mg inj. IM ONE (03:26)
[2024-10-26 03:41] LABS: URINE AMPHETAMINE SCREEN NEGATIVE (Neg); URINE BARBITUATE SCREEN NEGATIVE (Neg); URINE BENZODIAZEPINES SCREEN NEGATIVE (Neg); URINE CANNABINOID SCREEN NEGATIVE (Neg); URINE COCAINE SCREEN NEGATIVE (Neg); URINE METHADONE SCREEN NEGATIVE (Neg); URINE OPIATE SCREEN NEGATIVE (Neg); URINE PHENCYCLIDINE SCREEN NEGATIVE (Neg)
[2024-10-26] MEDS: LIDOcaine 2% Viscous 15ml cup MM ONE (04:00)
[2024-10-26] MEDS: ketorolac trometh 15mg/ml vial 15 MG/ML ML IM ONE (04:00)
[2024-10-26 05:00] VITALS: BP 130/80; PULSE 96; RESP 16; O2SAT 99
== END 2024-10-26 05:03 | disposition home or self-care (01) ==
LOC: ER 22:49
DX: F41.9 Anxiety disorder, unspecified (principal); R45.851 Suicidal ideations; E78.00 Pure hypercholesterolemia, unspecified; F31.9 Bipolar disorder, unspecified; J45.909 Unspecified asthma, uncomplicated; Z88.0 Allergy status to penicillin; Z90.710 Acquired absence of both cervix and uterus; Z20.822 Contact with and (suspected) exposure to COVID-19
CPT/HCPCS: 36415; 80048; 80305; 80320; 81003; 81025; 84443; 85025; 87811; 96372; 99284; J1885; J3490

== ENCOUNTER 2024-10-29 22:28 | Emergency (ER) | payer MEDICARE, MEDICAID ==
[~2024-10-29] VITALS: Ht 165.1 cm; Wt 80.0 kg
[~2024-10-29 22:28] MED LIST changes: -CYCL-1 PO; -DOCU-148 PO; -HYDR-3965 PO; -HYDR-3973 PO; -IBUP-1986 PO; +MIRT-142 PO; -ONDA-243 PO; -TAMS-55 PO
[2024-10-29 22:38] VITALS: BP 117/64; PULSE 131; O2SAT 98
--- NOTE | 2024-10-29 23:15 | Physician Documentation ---
History of Present Illness ~ Chief Complaint: Toe pain Stated Complaint: HURT PINKY TOE Time Seen by MD: 23:08 Primary Medical Doctor: [facility] HPI This is a 39-year-old female who presents with left 5th toe pain and left lateral foot pain after kicking an object accidentally approximately 6 hours prior to arrival, patient reports that she took 4 �Advil dual action� proximally 45 minutes prior to arrival with no relief of pain. Tetanus witin 5 years: Yes (2022) Medication Reconciliation Allergies: Coded Allergies: Penicillins (Verified Allergy, Unknown, 10/25/24) amoxicillin trihydrate (Unverified Allergy, Unknown, 10/25/24) potassium clavulanate (Unverified Allergy, Unknown, 10/25/24) quetiapine (Verified Allergy, Unknown, ITCHING SWELLING, 10/25/24) sumatriptan (Verified Allergy, Unknown, tongue swelling, 10/25/24) Uncoded Allergies: BEE STING (Allergy, Unknown, 01/12/23) Scheduled Atorvastatin Calcium* (Lipitor*), 1 TAB PO DAILY, (Reported) Cholecalciferol (Vitamin D3) (Vitamin D3), 1 CAP PO DAILY, (Reported) Estradiol* (Estrace*), 1 TAB PO DAILY, (Reported) Guanfacine HCl (Guanfacine HCl ER), 1 TAB PO DAILY, (Reported) Lamotrigine* (Lamictal*), 1 TAB PO DAILY, (Reported) Lumateperone Tosylate (Caplyta), 42 MG PO DAILY, (Reported) Mirtazapine (Remeron), 1 TAB PO HS, (Reported) Trazodone Hcl (Trazodone Hcl), 1 TAB PO HS, (Reported) Scheduled PRN Albuterol Sulfate Nebs* (Proventil Nebs*), 2.5 MG IH Q4H PRN for SOB or wheezing, (Reported) Baclofen (Baclofen), 1 TAB PO Q8H PRN for muscle spasms, (Reported) Clonazepam* (Klonopin*), 2 MG PO Q12H PRN for anxiety, (Reported) Ibuprofen* (Motrin*), 400 MG PO Q8H PRN for pain, (Reported) Discontinued Medications Cyclobenzaprine* (Cyclobenzaprine*), 1 TAB PO TID Discontinued Reason: completed med therapy Docusate Sodium (Colace), 1 CAP PO Q12H, (Reported) Discontinued Reason: patient no longer taking Hydrocodone Bit/Acetaminophen 5/325 MG ([place] 5/325 MG), 1 TAB PO Q4H PRN for pain Discontinued Reason: patient no longer taking Hydrocodone Bit/Acetaminophen (Hydrocodone-Apap 10-325 Tablet), 1 TABLET PO Q6H PRN for pain Discontinued Reason: completed med therapy Ibuprofen (Ibuprofen), 1 TAB PO Q8H Discontinued Reason: completed med therapy ONDANSETRON ODT 4mg tablet (Ondansetron Odt), 1 TABLET PO Q6H PRN for nausea/vomiting Discontinued Reason: completed med therapy Tamsulosin Hcl* (Flomax*), 0.4 MG PO DAILY Discontinued Reason: completed med therapy Past Medical History Past Medical History: Migraine, High Cholesterol, Asthma, Pneumonia, Kidney Stones, UTI, Chronic Pain, Chronic Back Pain, Anxiety, Bipolar, Depression Past Surgical History: hysterectomy, orthopedic surgeries, tubal ligation Alcohol Use: None Drug Use: none Lives with: Family Lives In: Home Occupation: unemployed, disabled Physical Exam Vital Signs: Temperature: 98.0, Source: Temporal, Heart Rate: 131, Respiratory Rate: 18, BP: 117/64, Pulse Oximetry: 98, Weight: 80.000 Physical Exam VITALS: Reviewed and as above. GENERAL: Alert, nontoxic appearing, no apparent distress. RESPIRATORY: No increased work of breathing, no respiratory distress, speaking in full clear sentences MUSCULOSKELETAL: Left 5th toe tender to palpation, left side of left pressure steamer tender to palpation to dorsal, lateral, and plantar surfaces. Left foot brisk capillary refill and pedal pulse intact. SKIN: NEURO: PSYCH: Progress Results/Orders Results/Orders Orders - KRISTINE SCHULTE Foot, Complete (3vw Min) (10/29/24 23:10) Ortho Orders (10/30/24 00:53) Completed Orders - KRISTINE SCHULTE Foot, Complete (3vw Min) (10/29/24 23:10) Ketorolac Trometh 15mg/Ml Vial (Toradol (10/29/24 23:55) Ondansetron Inj. (Zofran 4mg/2ml Vial) (10/30/24 00:00) Medications Received in ER Medications (Trade) Dose Ordered Sig/Breonna Route PRN Reason Start Time Stop Time Status Last Admin Dose Admin (Toradol injection) 15 mg ONCE ONCE IM 10/29/24 23:55 10/29/24 23:56 DC 10/30/24 00:04 15 MG (Zofran 4mg/2ml vial) 4 mg ONCE ONCE IM 10/30/24 00:00 10/30/24 00:01 DC 10/30/24 00:03 4 MG Vital Signs 10/29/24 10/30/24 10/30/24 22:38 00:04 01:05 Temp 98.0 98.0 Pulse 131 Resp 18 16 B/P (MAP) 117/64 Pulse Ox 98 EKG/XRAY/CT/US/VASC/MRI Bone/Soft Tissue X-Ray (Ext.) : Additional Comment Exam: FOOT, COMPLETE (3VW MIN) Clinical History Toe and Foot Pain Comparison None Technique: left foot 3 views Without Contrast DEBBIE MEHTA, [id number] Findings: Bones: fracture in the distal aspect of the proximal phalanx in the fifth digit.. Soft tissues: No swelling. No foreign body Joints: Visualized joints are within normal limits. Impression: 1. Intra-articular fracture in the distal aspect of the proximal phalanx in the fifth digit. This report was electronically signed by Adi Jacobs MD on 10/30/2024 1:26:43 AM. Electronically Signed by:ADI JACOBS MD Date & Time: 10/30/24129 Dictated by: ADI JACOBS MD Dictation date and time: 10/30/24129 I have reviewed and agree with the radiology report. Prior to radiologist interpretation I interpreted the imaging as: No fracture or dislocation Medical Decision Making Findings This 39-year-old female presented with pain to her right 5th toe and lateral aspect of her left foot after stubbing her toe on an object proximally 6 hours prior to arrival. The digit was neurovascularly intact with brisk capillary refill though was tender to palpation. An x-ray of the toe and foot was obtained. My initial interpretation of x-ray did not demonstrate fracture or dislocation however radiologist interpretation noted Intra-articular fracture in the distal aspect of the proximal phalanx in the fifth digit, the patient had been placed in a stiff-soled shoe and placed on crutches for nonweightbearing therefore treatment will not change in his reassuring that fracture was nondisplaced. Remainder of physical exam was benign patient medicated for pain in department, vital signs stable and patient is appropriate for outpatient follow up. Toe Diff Dx:Considerations: Include: Abrasion, Cellulitis, Contusion, Dislocation, Laceration, Neurovascular injury, Open fracture Departure Time of Disposition: 01:01 Disposition: 01 HOME / SELF CARE / HOMELESS Impression: Primary Impression: Pain of toe Qualified Codes: M79.675 - Pain in left toe(s) Condition: Improved Discharge Instructions: RICE Therapy for Routine Care of Injuries, [id number] Additional Instructions: We did not see a fracture on your x-ray. This is likely a soft tissue injury, please see the attached home care instructions for caring for your foot at home. Please use the crutches to keep weight off your foot, ice it 20 minutes at a time with at least 30 minutes between ice application, elevate the foot whenever possible. You may use ibuprofen and or Tylenol as needed for pain as directed by [id number] packaging. Please follow up with your primary care provider in the next few days. Please return to the emergency department for any new or worsening concerning symptoms. Referrals: NO PRIMARY CARE PROVIDER (PCP) Education Educated: Patient Educated regarding: diagnosis, treatment, prognosis, need for follow up Signature Scribe Signature: No scribe Attestation: The note accurately reflects work and decisions made by me.LISANDRO Bright 10/30/24 02:01 KRISTINE SCHULTE October 29, 2024 23:15
[2024-10-30] MEDS: ondansetron/PF 4mg/2ml inj IM ONE (00:03)
[2024-10-30 00:04] VITALS: RESP 16
[2024-10-30] MEDS: ketorolac trometh 15mg/ml vial 15 MG/ML ML IM ONE (00:04)
[2024-10-30 01:05] VITALS: TEMP 98
--- NOTE | 2024-10-30 01:30 | RADIOLOGY REPORT ---
Clinical History Toe and Foot Pain Comparison None Technique: left foot 3 views Without Contrast DEBBIE MEHTA, [id number] Findings: Bones: fracture in the distal aspect of the proximal phalanx in the fifth digit.. Soft tissues: No swelling. No foreign body Joints: Visualized joints are within normal limits. Impression: 1. Intra-articular fracture in the distal aspect of the proximal phalanx in the fifth digit. This report was electronically signed by Adi Jacobs MD on 10/30/2024 1:26:43 AM.
== END 2024-10-30 01:15 | disposition home or self-care (01) ==
LOC: ER 22:29
DX: S92.512A Displaced fracture of proximal phalanx of left lesser toe(s), initial encounter for closed fracture (principal); E78.00 Pure hypercholesterolemia, unspecified; F31.9 Bipolar disorder, unspecified; J45.909 Unspecified asthma, uncomplicated; F41.9 Anxiety disorder, unspecified; Z87.440 Personal history of urinary (tract) infections; Z88.0 Allergy status to penicillin; Z88.8 Allergy status to other drugs, medicaments and biological substances; Z90.710 Acquired absence of both cervix and uterus; W22.8XXA Striking against or struck by other objects, initial encounter; Y93.89 Activity, other specified; Y92.89 Other specified places as the place of occurrence of the external cause; Y99.8 Other external cause status
CPT/HCPCS: 73630; 96372; 99284; J1885; J2405; L3260

== ENCOUNTER 2024-11-22 22:23 | Emergency (ER) | payer MEDICARE, MEDICAID ==
[~2024-11-22] VITALS: Ht 165.1 cm; Wt 68.5 kg
[2024-11-23] MEDS: LORazepam 1 MG tablet PO ONE (00:28)
[2024-11-23] MEDS: haloperidol lactate 5mg/ml inj IM ONE (02:09)
--- NOTE | 2024-11-23 02:45 | Physician Documentation ---
History of Present Illness ~ Chief Complaint: Mental Health Eval Stated Complaint: ANXIETY Time Seen by MD: 23:27 Primary Medical Doctor: [facility] Mode of Arrival: POV HPI Patient arrives from home with complaints of feeling suicidal. States that she has a history of bipolar disorder and reports feeling depressed. Racing thoughts. Denies HI, states compliant with her meds no plan. Medication Reconciliation Allergies: Coded Allergies: Penicillins (Verified Allergy, Unknown, 11/22/24) >5 years, anaphylaxis, treatment required, amoxicillin trihydrate (Unverified Allergy, Unknown, 11/22/24) potassium clavulanate (Unverified Allergy, Unknown, 11/22/24) quetiapine (Verified Allergy, Unknown, ITCHING SWELLING, 11/22/24) sumatriptan (Verified Allergy, Unknown, tongue swelling, 11/22/24) Uncoded Allergies: BEE STING (Allergy, Unknown, 01/12/23) Scheduled Atorvastatin Calcium* (Lipitor*), 1 TAB PO DAILY, (Reported) Cholecalciferol (Vitamin D3) (Vitamin D3), 1 CAP PO DAILY, (Reported) Estradiol* (Estrace*), 1 TAB PO DAILY, (Reported) Guanfacine HCl (Guanfacine HCl ER), 1 TAB PO DAILY, (Reported) Lamotrigine* (Lamictal*), 1 TAB PO DAILY, (Reported) Lumateperone Tosylate (Caplyta), 42 MG PO DAILY, (Reported) Mirtazapine (Remeron), 1 TAB PO HS, (Reported) Trazodone Hcl (Trazodone Hcl), 1 TAB PO HS, (Reported) Scheduled PRN Albuterol Sulfate Nebs* (Proventil Nebs*), 2.5 MG IH Q4H PRN for SOB or wheezing, (Reported) Baclofen (Baclofen), 1 TAB PO Q8H PRN for muscle spasms, (Reported) Clonazepam* (Klonopin*), 2 MG PO Q12H PRN for anxiety, (Reported) Ibuprofen* (Motrin*), 400 MG PO Q8H PRN for pain, (Reported) Past Medical History Past Medical History: Migraine, High Cholesterol, Asthma, Pneumonia, Kidney Stones, UTI, Chronic Pain, Chronic Back Pain, Anxiety, Bipolar, Depression Past Surgical History: hysterectomy, orthopedic surgeries, tubal ligation Alcohol Use: None Drug Use: none Lives with: Family Lives In: Home Occupation: unemployed, disabled Review of Systems All Other Systems at this time: Reviewed and Negative Physical Exam Vital Signs: RN Vital Signs have been reviewed: Yes, Temperature: 96.6, Source: Temporal, Heart Rate: 110, Respiratory Rate: 15, BP: 145/98, Pulse Oximetry: 99, Weight: 68.500 Physical Exam HEENT: PERRL, moist oral mucosa, EOMI Pulmonary: No respiratory distress MSK: no deformity Skin: w/d/i, no rash Neuro: alert, nonfocal Psych: sad affect Progress Results/Orders Results/Orders Completed Orders - EMILY GUERRIER MD Lorazepam Tablet (Ativan Tablet) (11/23/24 00:20) Haloperidol Lact. (Haldol) (11/23/24 01:20) Medications Received in ER Medications (Trade) Dose Ordered Sig/Breonna Route PRN Reason Start Time Stop Time Status Last Admin Dose Admin (Ativan tablet) 1 mg ONCE ONCE PO 11/23/24 00:20 11/23/24 00:21 DC 11/23/24 00:28 1 MG (Haldol) 5 mg ONCE ONCE IM 11/23/24 01:20 11/23/24 01:21 DC 11/23/24 02:09 5 MG Vital Signs 11/22/24 11/23/24 22:39 00:01 Temp 96.6 Pulse 110 Resp 15 B/P (MAP) 145/98 Pulse Ox 99 Medical Decision Making Findings 39 year old female with depression and suicidal ideation without plan. Patient mentioned that medications sometimes help in these situations and I provided several. Improved on reevaluation, no longer suicidal, wished to leave. Able to verbalize plan of self-care. Return precautions. Differential Dx:Considerations: Include: Alcohol abuse, Anxiety, Bipolar disorder, Depression, Encephaloathy, Homicidal, Personality disorder, Schizophrenia, Substance abuse, Suicidal Departure Disposition: 01 HOME / SELF CARE / HOMELESS Impression: Primary Impression: Suicidal ideation Condition: Stable Discharge Instructions: Suicidal Feelings: How to Help Yourself Referrals: NO PRIMARY CARE PROVIDER (PCP) Education Educated: Patient Educated regarding: diagnosis, treatment, prognosis, need for follow up Signature Scribe Signature: . Attestation: . EMILY GUERRIER MD Nov 23, 2024 02:45
[2024-11-23 03:02] VITALS: BP 136/85; PULSE 89; RESP 16; TEMP 98.5; O2SAT 99
== END 2024-11-23 03:10 | disposition home or self-care (01) ==
LOC: ER 22:24
DX: R45.851 Suicidal ideations (principal); F31.9 Bipolar disorder, unspecified; F41.9 Anxiety disorder, unspecified; E78.00 Pure hypercholesterolemia, unspecified; J45.909 Unspecified asthma, uncomplicated; G43.909 Migraine, unspecified, not intractable, without status migrainosus; Z88.0 Allergy status to penicillin; Z90.710 Acquired absence of both cervix and uterus; Z88.1 Allergy status to other antibiotic agents; Z79.899 Other long term (current) drug therapy; Z88.8 Allergy status to other drugs, medicaments and biological substances; Z87.442 Personal history of urinary calculi; Z56.0 Unemployment, unspecified
CPT/HCPCS: 96372; 99283; J1630

== ENCOUNTER 2024-11-30 20:02 | Emergency (ER) | payer MEDICARE, MEDICAID ==
[~2024-11-30] VITALS: Ht 165.1 cm; Wt 83.6 kg
[2024-11-30] MEDS: OLANZapine 2.5MG tablet PO SCH (21:14)
--- NOTE | 2024-11-30 22:14 | Physician Documentation ---
History of Present Illness ~ Chief Complaint: Mental Health Eval Stated Complaint: MH EVAL Time Seen by MD: 23:30 OK to notify your PCP?: Yes Primary Medical Doctor: [facility] Source: patient Mode of Arrival: POV, Ambulatory Exam Limitations: no limitations HPI 39 year old female presents from home after having a mental breakdown. She states she is having suicidal ideation but does not have an active plan. She states that she was started on olanzapine yesterday. She takes Lamictal and clonazepam as well. She is currently taking antibiotics for an infection on her left arm and it is in a sling. Medication Reconciliation Allergies: Coded Allergies: Penicillins (Verified Allergy, Unknown, 11/22/24) >5 years, anaphylaxis, treatment required, amoxicillin trihydrate (Unverified Allergy, Unknown, 11/22/24) potassium clavulanate (Unverified Allergy, Unknown, 11/22/24) quetiapine (Verified Allergy, Unknown, ITCHING SWELLING, 11/22/24) sumatriptan (Verified Allergy, Unknown, tongue swelling, 11/22/24) Uncoded Allergies: BEE STING (Allergy, Unknown, 01/12/23) Scheduled Atorvastatin Calcium (Atorvastatin Calcium), 1 TAB PO HS, (Reported) Estradiol (Estradiol), 1 TAB PO DAILY, (Reported) Guanfacine HCl (Guanfacine HCl ER), 1 TAB PO HS, (Reported) Lamotrigine (Lamotrigine), 1 TAB PO DAILY, (Reported) Olanzapine (Olanzapine), 1 TAB PO HS, (Reported) Scheduled PRN Clonazepam (Clonazepam), 1 TAB PO BID PRN for anxiety, (Reported) Discontinued Medications Albuterol Sulfate Nebs* (Proventil Nebs*), 2.5 MG IH Q4H PRN for SOB or wheezing, (Reported) Discontinued Reason: Pt. condition changed Atorvastatin Calcium* (Lipitor*), 1 TAB PO DAILY, (Reported) Discontinued Reason: Pt. condition changed Baclofen (Baclofen), 1 TAB PO Q8H PRN for muscle spasms, (Reported) Discontinued Reason: Pt. condition changed Cholecalciferol (Vitamin D3) (Vitamin D3), 1 CAP PO DAILY, (Reported) Discontinued Reason: Pt. condition changed Clonazepam* (Klonopin*), 2 MG PO Q12H PRN for anxiety, (Reported) Discontinued Reason: Pt. condition changed Estradiol* (Estrace*), 1 TAB PO DAILY, (Reported) Discontinued Reason: Pt. condition changed Guanfacine HCl (Guanfacine HCl ER), 1 TAB PO DAILY, (Reported) Discontinued Reason: Pt. condition changed Ibuprofen* (Motrin*), 400 MG PO Q8H PRN for pain, (Reported) Discontinued Reason: Pt. condition changed Lamotrigine* (Lamictal*), 1 TAB PO DAILY, (Reported) Discontinued Reason: Pt. condition changed Lumateperone Tosylate (Caplyta), 42 MG PO DAILY, (Reported) Discontinued Reason: Pt. condition changed Mirtazapine (Remeron), 1 TAB PO HS, (Reported) Discontinued Reason: Pt. condition changed Trazodone Hcl (Trazodone Hcl), 1 TAB PO HS, (Reported) Discontinued Reason: Pt. condition changed Past Medical History Past Medical History: Migraine, High Cholesterol, Asthma, Pneumonia, Kidney Stones, UTI, Chronic Pain, Chronic Back Pain, Anxiety, Bipolar, Depression Past Surgical History: hysterectomy, orthopedic surgeries, tubal ligation Alcohol Use: None Drug Use: none Lives with: Family Lives In: Home Occupation: unemployed, disabled Review of Systems All Other Systems at this time: Reviewed and Negative ROS Patient denies any other acute symptoms other than above. All other systems are negative Physical Exam Vital Signs: RN Vital Signs have been reviewed: Yes, Temperature: 98.2, Source: Temporal, Heart Rate: 65, Respiratory Rate: 15, BP: 99/60, Pulse Oximetry: 98, Weight: 83.630 Oxygen Flow Rate: 0 Pulse Oximetry Reflects: adequate oxygenation Physical Exam General: Alert, mild distress. HEENT: No injection, moist mucous membranes. Neck: Full range of motion. Respiratory: No respiratory distress, equal chest rise and fall. Chest: No accessory muscle use. Cardiovascular: Regular rate and rhythm. Gastrointestinal: Nondistended. Extremities: Normal range of motion, no deformity. Neurologic: Oriented x4. Psychiatric: Anxious and tearful. Skin: Normal color, warm and dry. Progress Results/Orders Results/Orders Completed Orders - HIEU JORGE MD Ibuprofen Tablet (Motrin Tablet) (12/01/24 07:15) Medications Received in ER Medications (Trade) Dose Ordered Sig/Breonna Route PRN Reason Start Time Stop Time Status Last Admin Dose Admin (Tylenol tablet) 650 mg ONCE ONCE PO 12/01/24 02:55 12/01/24 02:56 DC 12/01/24 03:02 650 MG (klonoPIN 1mg tablet) 2 mg ONCE ONCE PO 12/01/24 02:55 12/01/24 02:56 DC 12/01/24 03:02 2 MG (Keflex capsule) 500 mg Q8H PO 12/01/24 02:55 12/01/24 07:25 500 MG (LaMICtal tablet) 200 mg DAILY PO 12/01/24 08:00 12/01/24 07:25 200 MG (Motrin tablet) 400 mg ONCE ONCE PO 12/01/24 07:15 12/01/24 07:16 DC 12/01/24 07:31 400 MG Vital Signs 11/30/24 11/30/24 11/30/24 12/01/24 20:09 20:30 20:33 01:28 Temp 98.2 Pulse 90 65 96 Resp 20 16 15 15 B/P (MAP) 138/82 99/60 (73) 107/58 (74) Pulse Ox 97 98 96 O2 Flow Rate 0 12/01/24 12/01/24 06:01 07:05 Temp 97.0 Pulse 73 Resp 12 B/P (MAP) 95/53 (67) Pulse Ox 97 Laboratory Tests Test 11/30/24 20:35 11/30/24 23:59 12/01/24 00:48 Urine Specimen Description Urinal Urine Color Yellow Urine Clarity Clear Urine pH 6.0 Urine Specific [place] 1.015 Urine Protein Negative Urine Glucose (UA) Negative Urine Ketones Negative Urine Occult Blood Negative Urine Nitrite Negative Urine Bilirubin Negative Urine Urobilinogen 0.2 Urine Leukocyte Esterase Negative Volume Urine Centrifuged 10 ml Urine HCG, Qualitative Negative Urine Comment Urine Opiates Screen Positive Urine Methadone Screen Negative Urine Fentanyl Screen Negative Urine Barbiturates Screen Negative Urine Phencyclidine Screen Negative Urine Amphetamines Screen Negative Urine Benzodiazepines Screen Negative Urine Cocaine Screen Negative Urine Cannabinoids Screen Negative Drug Screen Comment SARS-CoV-2 Antigen (Rapid) Negative White Blood Count 6.8 Red Blood Count 3.99 L Hemoglobin 11.5 L Hematocrit 34.2 L Mean Corpuscular Volume 85.7 Mean Corpuscular Hemoglobin 28.9 Mean Corpuscular Hemoglobin Concent 33.7 Red Cell Distribution Width 14.1 Platelet Count 259 Mean Platelet Volume 7.3 L Neutrophils (%) (Auto) 74.5 Lymphocytes (%) (Auto) 17.9 L Monocytes (%) (Auto) 7.4 Eosinophils (%) (Auto) 0.1 Basophils (%) (Auto) 0.1 Neutrophils # (Auto) 5.0 Lymphocytes # (Auto) 1.2 Monocytes # (Auto) 0.5 Eosinophils # (Auto) 0.0 Basophils # (Auto) 0.0 CBC Comment Sodium Level 146 H Potassium Level 4.3 Chloride Level 112 H Carbon Dioxide Level 27.5 Anion Gap 7 L Blood Urea Nitrogen 11 Creatinine 0.79 Estimated GFR/1.73 m2 81 BUN/Creatinine Ratio 13.9 Glucose Level 103 Calcium Level 9.0 Albumin 3.2 L Thyroid Stimulating Hormone (TSH) 1.04 Chemistry Comments Ethyl Alcohol Level < 10 Medical Decision Making Findings Differential diagnosis includes but is not limited to: Substance abuse, anxiety, depression, suicidal ideations Laboratory data independent interpretation: CBC: Unremarkable CMP: Unremarkable sodium 146 Toxicology: Positive for opiates Serology: Negative COVID Urinalysis: Unremarkable Emergency department course/medical decision-making: Patient is a 39-year-old woman who presents with suicidal thoughts and anxiety. Patient is given Zyprexa which she takes for her schizoaffective disorder. Patient is medically cleared and stable for tele psychiatry consultation. Final disposition will be handed off to Dr. Jorge. Consultation/communications: Tele psychiatry consultation pending Departure Time of Disposition: 05:53 Disposition: 01 HOME / SELF CARE / HOMELESS Impression: Primary Impression: Suicidal ideation Additional Impression: Anxiety Condition: Stable Discharge Instructions: Suicidal Feelings: How to Help Yourself Additional Instructions: Please follow-up with [facility] as per Behavioral Health. Referrals: NO PRIMARY CARE PROVIDER (PCP) Education Educated: Patient Educated regarding: diagnosis, treatment Additional Comment Medical Screen Exam This patient recieved a medical screening examination. After reviewing the i ndividual's medical complaints with presenting symptoms and performing an appropriate physical examination, it was determined that no immediate life- threatening emergency medical condition is present. This individual is also not a women having contractions. Signature Scribe Signature: No scribe Attestation: No scribe Addendum Pt signed out to me as part of their psychiatric ED evaluation. Pt resting well. Vital signs within expected ranges. Brief Physical Examination: Alert and appropriately oriented. No signs of respiratory distress. Able to a mbulate and move all extremities. Medical evaluation does not indicate metabolic derangement. Awaiting final disposition. Hemodynamically stable. The patient is currently awaiting Behavioral Health final evaluation and disposition. 12/01/2024, 9:40 a.m.: [facility] has a established a safety plan and the patient will follow up with [facility]. DEBBIE MARK Nov 30, 2024 22:14 SAVANNAH MANSFIELD MD Dec 01, 2024 05:56 HIEU JORGE MD Dec 01, 2024 06:42
[2024-12-01 00:14] LABS: BILIRUBIN,URINE NEGATIVE (Neg); CLARITY,URINE CLEAR (Clear); COLOR,URINE YELLOW (Yellow); GLUCOSE, URINE NEGATIVE (Neg); KETONES,URINE NEGATIVE (Neg); LEUKOCYTE ESTERASE ,URINE NEGATIVE (Neg); NITRITES, URINE NEGATIVE (Neg); OCCULT BLOOD,URINE NEGATIVE (Neg); PROTEIN,URINE NEGATIVE (Neg); UROBILINOGEN,URINE 0.2 E.U/dL (0.2-1.0)
[2024-12-01 00:19] LABS: UA COLLECTION TYPE URINAL
[2024-12-01 00:25] LABS: URINE HCG NEGATIVE (NEG)
[2024-12-01 00:38] LABS: URINE AMPHETAMINE SCREEN NEGATIVE (Neg); URINE BARBITUATE SCREEN NEGATIVE (Neg); URINE BENZODIAZEPINES SCREEN NEGATIVE (Neg); URINE CANNABINOID SCREEN NEGATIVE (Neg); URINE COCAINE SCREEN NEGATIVE (Neg); URINE METHADONE SCREEN NEGATIVE (Neg); URINE OPIATE SCREEN POSITIVE (Neg); URINE PHENCYCLIDINE SCREEN NEGATIVE (Neg)
[2024-12-01 01:05] LABS: BASOPHILS % (AUTO) 0.1 % (0-1); EOSINOPHILS % (AUTO) 0.1 % (0-6); HEMATOCRIT 34.2 % (35.0-45.0); HEMOGLOBIN 11.5 g/dl (12.0-16.0); LYMPHOCYTES # (AUTO) 1.2 X10'3 (1.1-4.8); LYMPHOCYTES % (AUTO) 17.9 % (21-51); MEAN CORPUSCULAR HEMOGLOBIN 28.9 PG (27.0-31.0); MEAN CORPUSCULAR HGB CONC 33.7 g/dL (33.0-36.5); MEAN CORPUSCULAR VOLUME 85.7 FL (78-98); MEAN PLATELET VOLUME 7.3 FL (7.4-10.4); MONOCYTES # (AUTO) 0.5 X10'3 (0-0.9); MONOCYTES % (AUTO) 7.4 % (2-12); NEUTROPHILS % (AUTO) 74.5 % (42-75); PLATELET COUNT 259 X10'3 (140-440); RED BLOOD COUNT 3.99 X10'6 (4.20-5.60); RED CELL DISTRIBUTION WIDTH 14.1 % (11.5-14.5); WHITE BLOOD COUNT 6.8 X10'3 (4.5-11.0)
[2024-12-01 01:28] LABS: ALBUMIN 3.2 G/DL (3.4-5.0); ANION GAP 7 (8-16); BLOOD UREA NITROGEN 11 MG/DL (7-18); BUN/CREATININE RATIO 13.9 (10.0-20.0); CHLORIDE 112 MMOL/L (99-107); CREATININE 0.79 MG/DL (0.40-0.90); ETHANOL < 10 MG/DL (<10); GLUCOSE 103 MG/DL (70-104); POTASSIUM 4.3 MMOL/L (3.5-5.1); SODIUM 146 MMOL/L (135-145); THYROID STIMULATING HORMONE 1.04 ulU/ml (0.34-4.50); TOTAL CARBON DIOXIDE 27.5 MMOL/L (24-32); eCRCL 85 ML/MIN; eGFR 81 ML/MIN
[2024-12-01] MEDS: cephalexin 250mg capsule PO SCH (03:01)
[2024-12-01] MEDS: acetaminophen 325mg tablet PO ONE (03:02)
[2024-12-01] MEDS: clonazePAM 1mg tablet PO ONE (03:02)
[2024-12-01] MEDS ORDERED: OLAN10TA73 PO (04:28)
[2024-12-01] MEDS ORDERED: LAMO200T10 PO (04:28)
[2024-12-01] MEDS ORDERED: ATOR40TA72 PO (04:28)
[2024-12-01] MEDS ORDERED: CLON2TAB11 PO (04:28)
[2024-12-01] MEDS ORDERED: GUAN3TAB2 PO (04:28)
[2024-12-01] MEDS ORDERED: ESTR1TAB19 PO (04:28)
[2024-12-01 06:01] VITALS: BP 95/53; PULSE 73; RESP 12; TEMP 97; O2SAT 97
[2024-12-01] MEDS ORDERED: clonazePAM 1mg tablet PO PRN (06:05)
[2024-12-01] MEDS: lamoTRIgine 100mg tablet PO SCH (07:25)
[2024-12-01] MEDS: ibuprofen tablet 400 MG TABLET PO ONE (07:31)
[2024-12-01] MEDS: estradiol 1mg tablet PO SCH (08:00)
[2024-12-01] MEDS ORDERED: atorvastatin 20mg tablet PO SCH (21:00)
[2024-12-01] MEDS ORDERED: GUANFACINE 3 MG PO SCH (21:00)
[2024-12-01] MEDS ORDERED: olanzapine 10mg tablet PO SCH (21:00)
== END 2024-12-01 10:13 | disposition home or self-care (01) ==
LOC: ER 20:03
DX: R45.851 Suicidal ideations (principal); F41.9 Anxiety disorder, unspecified; J45.909 Unspecified asthma, uncomplicated; F31.9 Bipolar disorder, unspecified; E78.00 Pure hypercholesterolemia, unspecified; G43.909 Migraine, unspecified, not intractable, without status migrainosus; Z79.899 Other long term (current) drug therapy; Z88.0 Allergy status to penicillin; Z90.710 Acquired absence of both cervix and uterus; Z88.1 Allergy status to other antibiotic agents; Z88.8 Allergy status to other drugs, medicaments and biological substances; Z56.0 Unemployment, unspecified; Z87.442 Personal history of urinary calculi; Z20.822 Contact with and (suspected) exposure to COVID-19
CPT/HCPCS: 36415; 80048; 80305; 80320; 81003; 81025; 84443; 85025; 87811; 99284

== ENCOUNTER 2024-12-24 16:24 | Emergency (ER) | payer MEDICARE, MEDICAID ==
[~2024-12-24] VITALS: Ht 172.7 cm; Wt 99.2 kg
[~2024-12-24 16:24] MED LIST changes: -ALB0.5UD IH; -ATOR40TA PO; +ATOR40TA72 PO; -BACL-11 PO; -CHOL50004 PO; -CLON-527 PO; +CLON2TAB11 PO; -EST1T PO; +ESTR1TAB19 PO; -GUAN2TAB19 PO; +GUAN3TAB2 PO; -IBUP-1984 PO; -LAMO150T2 PO; +LAMO200T10 PO; -LUMA42CA PO; -MIRT-142 PO; +OLAN10TA73 PO; -TRAZ150T78 PO
[2024-12-24 16:29] VITALS: TEMP 98.5
--- NOTE | 2024-12-24 16:31 | ELECTROCARDIOGRAPH REPORT ---
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
[2024-12-24 16:54] LABS: MEAN PLATELET VOLUME 7.1 FL (7.4-10.4); RED CELL DISTRIBUTION WIDTH 13.9 % (11.5-14.5)
--- NOTE | 2024-12-24 17:07 | Physician Documentation ---
History of Present Illness ~ Chief Complaint: Shortness of Breath Stated Complaint: SOB Time Seen by MD: 17:09 Primary Medical Doctor: [facility] HPI 39-year-old female with a history of asthma was brought to the emergency depart ment today after she called 911 due to concerns for chest pain and shortness of breath. History of asthma, and has been using her inhaler without relief. Chest is tender to palpation, there is worsening of her pain with deep breaths. She reports feeling overall unwell for the last couple of days but has not identified any chills or fever. Has had no nausea, vomiting, diarrhea. Medication Reconciliation Allergies: Coded Allergies: Penicillins (Verified Allergy, Unknown, 11/22/24) >5 years, anaphylaxis, treatment required, amoxicillin trihydrate (Unverified Allergy, Unknown, 11/22/24) potassium clavulanate (Unverified Allergy, Unknown, 11/22/24) quetiapine (Verified Allergy, Unknown, ITCHING SWELLING, 11/22/24) sumatriptan (Verified Allergy, Unknown, tongue swelling, 11/22/24) Uncoded Allergies: BEE STING (Allergy, Unknown, 01/12/23) Scheduled Atorvastatin Calcium (Atorvastatin Calcium), 1 TAB PO HS, (Reported) Azithromycin (Azithromycin), 1 TAB PO UD Estradiol (Estradiol), 1 TAB PO DAILY, (Reported) Guaifenesin (Mucinex), 1 TAB PO Q12H Guanfacine HCl (Guanfacine HCl ER), 1 TAB PO HS, (Reported) Lamotrigine (Lamotrigine), 1 TAB PO DAILY, (Reported) Naproxen (Naproxen), 1 TAB PO Q12H Olanzapine (Olanzapine), 1 TAB PO HS, (Reported) Prednisone* (Prednisone*), 2 TAB PO DAILY Scheduled PRN Albuterol Sulfate (Ventolin Hfa), 2 PUFFS INH Q4HPRN PRN for wheezing Clonazepam (Clonazepam), 1 TAB PO BID PRN for anxiety, (Reported) Past Medical History Past Medical History: Migraine, High Cholesterol, Asthma, Pneumonia, Kidney Stones, UTI, Chronic Pain, Chronic Back Pain, Anxiety, Bipolar, Depression Past Surgical History: hysterectomy, orthopedic surgeries, tubal ligation Alcohol Use: None Drug Use: none Lives with: Family Lives In: Home Occupation: unemployed, disabled Review of Systems ROS As stated above in the HPI, otherwise all systems are reviewed and negative. Physical Exam Vital Signs: Temperature: 98.5, Source: Temporal, Heart Rate: 115, Respiratory Rate: 16, BP: 133/57, Pulse Oximetry: 97, Weight: 99.200 Oxygen Flow Rate: 0 Physical Exam General: Alert, no apparent distress. Neck: Full range of motion. Respiratory: Lungs clear but somewhat diminished, no respiratory distress. Chest: No accessory muscle use. TTP of chest. Cardiovascular: Regular rate and rhythm, no murmurs. Gastrointestinal: Soft, nontender, nondistended. Bowels sounds present. Extremities: Normal range of motion, no deformity. Neurologic: Oriented x4. Psychiatric: Normal mood and affect. Skin: Normal color, warm and dry. No edema, no ecchymosis. Progress Results/Orders Results/Orders Orders - YESI BAIRES JOURNEYMAN OPERATOR ASSISTANT Svn Treatment (12/24/24 17:08) Completed Orders - YESI BAIRES JOURNEYMAN OPERATOR ASSISTANT Ipratropium/Albuterol Nebule (Ipratrop/A (12/24/24 17:10) Ketorolac Trometh 30mg/Ml Vial (Toradol (12/24/24 17:15) Methylprednisolone Sod Succ (Solumedrol (12/24/24 17:15) Medications Received in ER Medications (Trade) Dose Ordered Sig/Breonna Route PRN Reason Start Time Stop Time Status Last Admin Dose Admin (ipratrop/ albuterol 0.5-3(2.5) MG/3ml nebule) 3 ml ONCE ONCE NEB 12/24/24 17:10 12/24/24 17:11 DC 12/24/24 17:24 3 ML (Toradol inj. 30mg/ml) 30 mg ONCE ONCE IV 12/24/24 17:15 12/24/24 17:16 DC 12/24/24 17:51 30 MG (SoluMEDROL 125mg inj) 125 mg ONCE ONCE IV 12/24/24 17:15 12/24/24 17:16 DC 12/24/24 17:50 125 MG Vital Signs 12/24/24 12/24/24 12/24/24 12/24/24 16:29 17:24 17:34 17:51 Temp 98.5 Pulse 115 100 110 Resp 16 26 24 22 B/P (MAP) 133/57 Pulse Ox 97 96 98 O2 Delivery Room Air* Room Air* O2 Flow Rate 0 0 0 FiO2 21 21 Laboratory Tests Test 12/24/24 16:25 12/24/24 16:33 White Blood Count 6.1 Red Blood Count 3.99 L Hemoglobin 11.3 L Hematocrit 33.8 L Mean Corpuscular Volume 84.7 Mean Corpuscular Hemoglobin 28.3 Mean Corpuscular Hemoglobin Concent 33.4 Red Cell Distribution Width 13.9 Platelet Count 287 Mean Platelet Volume 7.1 L Neutrophils (%) (Auto) 67.5 Lymphocytes (%) (Auto) 25.1 Monocytes (%) (Auto) 7.0 Eosinophils (%) (Auto) 0.2 Basophils (%) (Auto) 0.2 Neutrophils # (Auto) 4.1 Lymphocytes # (Auto) 1.5 Monocytes # (Auto) 0.4 Eosinophils # (Auto) 0.0 Basophils # (Auto) 0.0 CBC Comment D-Dimer 0.33 D-Dimer Comment Sodium Level 140 Potassium Level 3.3 L Chloride Level 106 Carbon Dioxide Level 25.4 Anion Gap 9 Blood Urea Nitrogen 8 Creatinine 0.93 H Estimated GFR/1.73 m2 67 BUN/Creatinine Ratio 8.6 L Glucose Level 118 H Calcium Level 8.6 Magnesium Level 1.6 Total Bilirubin 0.2 Aspartate Amino Transf (AST/SGOT) 15 Alanine Aminotransferase (ALT/SGPT) 23 Alkaline Phosphatase 172 H Troponin I High Sensitivity 6 Pro-B-Type Natriuretic Peptide 39 Total Protein 6.4 Albumin 3.0 L Globulin 3.4 Albumin/Globulin Ratio 0.9 L Human Chorionic Gonadotropin, Qual Negative Chemistry Comments EKG/XRAY/CT/US/VASC/MRI EKG : Additional Comment 3375: EKG interpreted to show ST rate of 106. No ectopy. No ST segment elevation. QTC 441 ms. Chest X-Ray : Additional Comments [facility] [address] , [place], [place] - [address] DIAGNOSTIC RADIOLOGY Patient: DEBBIE MEHTA Medical Record: [id number] [facility] : 1985, Age: 39 Sex: Female Location: ER Patient Status: REG ER Service Date/Time: 12/24/241655 Ordering Physician: BENIGNO COMBS DO Exam: CHEST,TWO V IEWS DI CHEST,TWO VIEWS CLINICAL HISTORY: sob COMPARISON: None TECHNIQUE: Frontal and lateral view of the chest was obtained FINDINGS: Lines and Tubes: None Lungs: Patchy right upper lung zone opacities. Pleura: No effusion. No pneumothorax. Cardiomediastinal contours: Unremarkable Bones: No acute osseous abnormality. IMPRESSION: Right upper lung zone opacity which may represent pneumonia in the right clinical setting. Electronically Signed by:ALYSA HUGHES DO Date & Time: 12/24/241702 Dictated by: ALYSA HUGHES DO Dictation date and time: 12/24/241702 Primary Care Provider: NO PRIMARY CARE PROVIDER cc: BENIGNO COMBS DO ~ Medical Decision Making Differential Dx:Considerations: Include: anxiety, asthma, bronchitis, cardiogenic shock, CHF, COPD, dysrhythmia, hypertension, accelerated, hypertension, essential, hypertension, malignant, hyperventilation, hyponatre isak, myocardial infarction, panic attack, pneumonia, pneumonitis, pneumothorax, PSVT, pulmonary embolism, respiratory distress, respiratory failure, sinusitis, upper resp. infection Additional Infomation On presentation, the patient was found to be anxious with mild tachypnea and tachycardia. She was reporting chest pain, worse with palpation and deep breath s. Nebulizer treatment with DuoNeb was provided by Respiratory therapist, and she did report that this was somewhat helpful. Pain persists. She was given a dose of Solu-Medrol 125 mg IV x1 and also Toradol 30 mg IV x1. PE was ruled out with a negative D-dimer. Chest x-ray showed possible pneumonia, but this seems unlikely given lack of elevated white blood cell count or hypoxia. The patient will nonetheless being treated for pneumonia due to her shortness of breath and chest pain. She will also be treated for costochondritis and asthma exacerbation. Departure Time of Disposition: 17:41 Disposition: 01 HOME / SELF CARE / HOMELESS Impression: Primary Impression: Pneumonia Additional Impressions: Asthma Costochondritis Condition: Stable Discharge Instructions: Asthma, Adult, [id number], Community-Acquired Pneumonia, Adult, Costochondritis Additional Instructions: You're being treated for costochondritis as the cause of your chest pain. You may also have pneumonia with an indeterminate chest x-ray. You will be treated for this with antibiotics, although you may elect to hold off on these for the last couple of days and see if you improve. Take Diclofenac for the costochondritis. Take Mucinex for congestion. Continue to use your inhaler as needed for wheezing or chest tightness. Take the prednisone as prescribed. Take the antibiotic if worse. Follow up with your primary care provider in one week. Return to the ER if worse at any time. Referrals: NO PRIMARY CARE PROVIDER (PCP) Prescriptions Diclofenac Potassium (Diclofenac Potassium) 50 Mg Tablet 1 TAB PO Q12H for costochondritis pain for 10 Days, #20 TAB 0 Refills Prov: YESI BAIRES NP 12/24/24 Guaifenesin (Mucinex) 1,200 Mg Tbbp.12hr 1 TAB PO Q12H for cough for 15 Days, #30 TAB 0 Refills Prov: YESI BAIRES NP 12/24/24 Albuterol Sulfate (Ventolin Hfa) 90 Mcg Hfa.aer.ad 2 PUFFS INH Q4HPRN PRN for wheezing for 30 Days, #18 GM 0 Refills Prov: YESI BAIRES NP 12/24/24 Prednisone* (Prednisone*) 20 Mg Tablet 2 TAB PO DAILY, #10 TAB Prov: YESI BAIRES NP 12/24/24 Azithromycin (Azithromycin) 250 Mg Tablet 1 TAB PO UD for 5 Days, #6 TAB 2 the first day followed by 1 for days 2-5 Prov: YESI BAIRES NP 12/24/24 Education Educated: Patient Educated regarding: diagnosis, treatment, prognosis, need for follow up Signature Scribe Signature: x Attestation: The note accurately reflects work and decisions made by me.Yesi Thomason NP 12/24/24 17:40 YESI BAIRES NP Dec 24, 2024 17:07
[2024-12-24 17:08] LABS: CREATININE 0.93 MG/DL (0.40-0.90); TOTAL CARBON DIOXIDE 25.4 MMOL/L (24-32); eCRCL 81 ML/MIN; eGFR 67 ML/MIN
[2024-12-24 17:16] LABS: PRO BRAIN NATRIURETIC PEPTIDE 39 PG/ML (0-125)
[2024-12-24 17:24] VITALS: PULSE 100; RESP 26; O2SAT 96
[2024-12-24] MEDS: ipratropium/albuterol 3ml nebule NEB ONE (17:24)
[2024-12-24 17:31] LABS: HCG SERUM QL NEGATIVE
[2024-12-24 17:34] VITALS: PULSE 110; RESP 24; O2SAT 98
[2024-12-24] MEDS ORDERED: AZIT250T29 PO (17:43)
[2024-12-24] MEDS ORDERED: PRED20TA PO (17:43)
[2024-12-24] MEDS ORDERED: ALBU18HF2 INH (17:43)
[2024-12-24] MEDS ORDERED: NAPR-56 PO (17:43)
[2024-12-24] MEDS ORDERED: GUAI120015 PO (17:43)
[2024-12-24] MEDS: ketorolac trometh 30MG/ML vial 30 MG/ML VIAL IV ONE (17:51)
[2024-12-24] MEDS ORDERED: DICL50TA7 PO (18:01)
[2024-12-24 18:33] VITALS: BP 156/98; PULSE 100; RESP 20; O2SAT 96
== END 2024-12-24 18:37 | disposition home or self-care (01) ==
LOC: ER 16:24
DX: J18.9 Pneumonia, unspecified organism (principal); J45.909 Unspecified asthma, uncomplicated; M94.0 Chondrocostal junction syndrome [Tietze]; E78.00 Pure hypercholesterolemia, unspecified; F31.9 Bipolar disorder, unspecified; F41.9 Anxiety disorder, unspecified; Z88.0 Allergy status to penicillin; Z88.8 Allergy status to other drugs, medicaments and biological substances; Z90.710 Acquired absence of both cervix and uterus
CPT/HCPCS: 36415; 71046; 80053; 83735; 83880; 84484; 84703; 85025; 85379; 93005; 94640; 96374; 96375; 99285; J1885; J2919; 94760

== ENCOUNTER 2024-12-25 02:35 | Emergency (ER) | payer MEDICARE, MEDICAID ==
[~2024-12-25] VITALS: Ht 165.1 cm; Wt 83.6 kg
[~2024-12-25 02:35] MED LIST changes: +ALBU18HF2 INH; +AZIT250T29 PO; +DICL50TA7 PO; +GUAI120015 PO; +PRED20TA PO
[2024-12-25 02:37] VITALS: TEMP 97.7
--- NOTE | 2024-12-25 03:17 | Physician Documentation ---
History of Present Illness ~ General Chief Complaint: Multiple Medical Complaints Stated Complaint: CHEST WALL PAIN Time Seen by MD: 03:16 Primary Medical Doctor: [facility] Mode of Arrival: EMS History of Present Illness Initial Comments Patient presents to the emergency room for evaluation of rib pain. She was seen here earlier for similar complaints and diagnosed with pneumonia. Toradol wore off and she is unsure when she can take her diclofenac therefore called the ambulance who administered Toradol in the way here. She states she is feeling better. Medication Reconciliation Allergies: Coded Allergies: Penicillins (Verified Allergy, Unknown, 12/25/24) >5 years, anaphylaxis, treatment required, amoxicillin trihydrate (Unverified Allergy, Unknown, 12/25/24) potassium clavulanate (Unverified Allergy, Unknown, 12/25/24) quetiapine (Verified Allergy, Unknown, ITCHING SWELLING, 12/25/24) sumatriptan (Verified Allergy, Unknown, tongue swelling, 12/25/24) Uncoded Allergies: BEE STING (Allergy, Unknown, 01/12/23) Scheduled Atorvastatin Calcium (Atorvastatin Calcium), 1 TAB PO HS, (Reported) Azithromycin (Azithromycin), 1 TAB PO UD Diclofenac Potassium (Diclofenac Potassium), 1 TAB PO Q12H Estradiol (Estradiol), 1 TAB PO DAILY, (Reported) Guaifenesin (Mucinex), 1 TAB PO Q12H Guanfacine HCl (Guanfacine HCl ER), 1 TAB PO HS, (Reported) Lamotrigine (Lamotrigine), 1 TAB PO DAILY, (Reported) Olanzapine (Olanzapine), 1 TAB PO HS, (Reported) Prednisone* (Prednisone*), 2 TAB PO DAILY Scheduled PRN Albuterol Sulfate (Ventolin Hfa), 2 PUFFS INH Q4HPRN PRN for wheezing Clonazepam (Clonazepam), 1 TAB PO BID PRN for anxiety, (Reported) Past Medical History Past Medical History: Migraine, High Cholesterol, Asthma, Pneumonia, Kidney Stones, UTI, Chronic Pain, Chronic Back Pain, Anxiety, Bipolar, Depression Past Surgical History: hysterectomy, orthopedic surgeries, tubal ligation Alcohol Use: None Drug Use: none Lives with: Family Lives In: Home Occupation: unemployed, disabled Review of Systems ROS All review of systems negative except as per HPI Physical Exam Physical Exam Vital Signs: Temperature: 97.7, Source: Oral, Heart Rate: 88, Respiratory Rate: 20, BP: 110/58, Pulse Oximetry: 95, Weight: 83.600 Physical Exam General: Patient is awake, alert, oriented x4 in no acute distress, anxious Head: Normocephalic and atraumatic. Eyes: Conjunctival normal. EOMI. PERRL. ENT: Mucous membranes moist. Neck: Supple, trachea is midline. Chest: Clear to auscultation bilaterally without rales, rhonchi, or wheezes. There is no accessory muscle use or retractions. Cardiac: RRR without murmurs, gallops, or rubs. Abd: Soft, nondistended, nontender, with normoactive bowel sounds. No guarding, rebound, or rigidity. Extremities: Normal strength. Normal range of motion. No deformities or edema. No calf tenderness to palpation Progress Results/Orders Results/Orders Orders - DARIEL CRUZ MD Electrocardiogram (12/25/24 02:39) Vital Signs 12/25/24 12/25/24 02:37 03:01 Temp 97.7 Pulse 88 Resp 20 20 B/P (MAP) 110/58 Pulse Ox 95 EKG/XRAY/CT/US/VASC/MRI EKG : Additional Comment EKG interpreted by myself shows time of 0244, rate 97, sinus rhythm, normal axis, no ST changes Medical Decision Making Findings Patient presents to the emergency room for evaluation of chest pain. Differentials include but are not limited to chest wall pain, rib pain, ACS, reflux, pneumothorax. EKGs reassuring. That has this is the same pain she was seen previously for it he had not feel additional labs or imaging is necessary. We will treat her pain. He had not feel she requires investigation into pulmonary embolism as that has no calf tenderness no tachycardia no hypoxia. Departure Disposition: HOME / SELF CARE / HOMELESS Impression: Primary Impression: Rib pain Condition: Improved Discharge Instructions: Rib Contusion Referrals: NO PRIMARY CARE PROVIDER (PCP) Signature Scribe Signature: No scribe Attestation: The note accurately reflects work and decisions made by me.Dariel Cruz MD 12/25/24 03:22 DARIEL CRUZ MD Dec 25, 2024 03:17
[2024-12-25] MEDS: HYDROcodone/acetaminophen 5mg/325mg tablet PO ONE (03:29)
[2024-12-25 03:50] VITALS: BP 104/59; PULSE 89; RESP 16; O2SAT 96
--- NOTE | 2024-12-25 05:49 | ELECTROCARDIOGRAPH REPORT ---
[facility], [place] Test Date: 2024-12-25 Test Time: 02:44:52 Pat Name: DEBBIE MEHTA Department: EMERGENCY ROOM Room: Gender: F [employer]: BERNIE : 1985 Requested By: FELICIA ORELLANA Order Number: [id number] Reading MD: Measurements Intervals [place] Rate: 97 P: 50 IA: 134 QRS: 71 QRSD: 92 T: 3 QT: 365 QTc: 464 Interpretive Statements Sinus rhythm Probable left atrial enlargement Inferior infarct, age indeterminate Consider anterolateral infarct Please click the below link to view image of tracing.
== END 2024-12-25 03:52 | disposition home or self-care (01) ==
LOC: ER 02:35
DX: R07.81 Pleurodynia (principal); E78.00 Pure hypercholesterolemia, unspecified; F31.9 Bipolar disorder, unspecified; J45.909 Unspecified asthma, uncomplicated; F41.9 Anxiety disorder, unspecified; G43.909 Migraine, unspecified, not intractable, without status migrainosus; Z88.0 Allergy status to penicillin; Z88.8 Allergy status to other drugs, medicaments and biological substances; Z90.710 Acquired absence of both cervix and uterus
CPT/HCPCS: 93005; 99283

== ENCOUNTER 2024-12-25 15:48 | Emergency (ER) | payer MEDICARE, MEDICAID ==
[~2024-12-25] VITALS: Ht 165.1 cm; Wt 82.0 kg
[2024-12-25 15:57] VITALS: BP 103/47; PULSE 91; O2SAT 97
--- NOTE | 2024-12-25 20:02 | Physician Documentation ---
History of Present Illness ~ Chief Complaint: Toe pain Stated Complaint: L TOE PAIN Time Seen by MD: 19:41 Primary Medical Doctor: [facility] HPI Patient is seen today with complaints of left small toe pain. 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 Patient states she is taking max doses of Tylenol and diclofenac sodium without any relief of pain. Patient states she wants narcotic pain meds. Patient failed to mention to me that she was just in here at 3:00 a.m. this morning and saw Dr. Cruz for rib pain and received a Ogden five in the ED earlier this morning. Patient currently denies any chest pain or shortness of breath or abdominal pain or nausea, vomiting, diarrhea. Patient has no other concern or complaint at this time. Tetanus witin 5 years: Yes (2022) Medication Reconciliation Allergies: Coded Allergies: Penicillins (Verified Allergy, Unknown, 12/25/24) >5 years, anaphylaxis, treatment required, amoxicillin trihydrate (Unverified Allergy, Unknown, 12/25/24) potassium clavulanate (Unverified Allergy, Unknown, 12/25/24) quetiapine (Verified Allergy, Unknown, ITCHING SWELLING, 12/25/24) sumatriptan (Verified Allergy, Unknown, tongue swelling, 12/25/24) Uncoded Allergies: BEE STING (Allergy, Unknown, 01/12/23) Scheduled Atorvastatin Calcium (Atorvastatin Calcium), 1 TAB PO HS, (Reported) Azithromycin (Azithromycin), 1 TAB PO UD Diclofenac Potassium (Diclofenac Potassium), 1 TAB PO Q12H Estradiol (Estradiol), 1 TAB PO DAILY, (Reported) Guaifenesin (Mucinex), 1 TAB PO Q12H Guanfacine HCl (Guanfacine HCl ER), 1 TAB PO HS, (Reported) Lamotrigine (Lamotrigine), 1 TAB PO DAILY, (Reported) Olanzapine (Olanzapine), 1 TAB PO HS, (Reported) Prednisone* (Prednisone*), 2 TAB PO DAILY Scheduled PRN Albuterol Sulfate (Ventolin Hfa), 2 PUFFS INH Q4HPRN PRN for wheezing Clonazepam (Clonazepam), 1 TAB PO BID PRN for anxiety, (Reported) Past Medical History Past Medical History: Migraine, High Cholesterol, Asthma, Pneumonia, Kidney Stones, UTI, Chronic Pain, Chronic Back Pain, Anxiety, Bipolar, Depression Past Surgical History: hysterectomy, orthopedic surgeries, tubal ligation Alcohol Use: None Drug Use: none Lives with: Family Lives In: Home Occupation: unemployed, disabled Review of Systems Constitutional: Denies: chills, fever, weakness Eyes: Denies: pain, blurred vision ENT: Denies: ear pain, nose pain, throat pain, mouth pain Respiratory: Denies: cough, shortness of breath Cardiovascular: Denies: chest pain, palpitations Gastrointestinal: Denies: abdominal pain, nausea, vomiting Genitourinary: Denies: burning, dysuria Female Genitalia: Denies: vaginal discharge, pelvic pain Neurological: Denies: headache, dizziness Musculoskeletal: Denies: pain, swelling Integumentary: Denies: rash, lesions Allergic/Immunologic: Denies: hives, itching Hematologic/Lymphatic: Denies: no symptoms reported Psychiatric: Denies: depression, anxiety Physical Exam Vital Signs: Temperature: 98.9, Source: Temporal, Heart Rate: 91, Respiratory Rate: 14, BP: 103/47, Pulse Oximetry: 97, Weight: 82.000 Physical Exam General: Awake and Alert, no acute distress. HEENT: Conjunctiva pink, Sclera clear, Mucus Membranes moist. Neck: Supple without masses and tenderness. Resp: Unlabored. Lungs clear to auscultation bilaterally. Heart: Regular Rate and rhythm, normal S1 and S2 without murmur, rub or gallop. Musculoskeletal: Patient on exam has tenderness to palpation of the left small toe seemingly out of proportion to exam. Patient is neurovascularly intact distally. Motor function intact distally. Extremities: No cyanosis,clubbing or edema. Skin: Warm and Dry. Progress Results/Orders Results/Orders Orders - JHON PATEL PAC Toe(S) (12/25/24 20:09) Completed Orders - JHON PATEL PAC Toe(S) (12/25/24 20:09) Hydrocodone/Apap 10/325 (Ogden 10/325mg (12/25/24 20:00) Medications Received in ER Medications (Trade) Dose Ordered Sig/Breonna Route PRN Reason Start Time Stop Time Status Last Admin Dose Admin (Ogden 10/325mg tab) 1 tab ONCE STAT PO 12/25/24 20:00 12/25/24 20:04 DC 12/25/24 20:38 1 TAB Vital Signs 12/25/24 12/25/24 15:57 20:38 Temp 98.9 Pulse 91 Resp 14 16 B/P (MAP) 103/47 Pulse Ox 97 EKG/XRAY/CT/US/VASC/MRI Bone/Soft Tissue X-Ray (Ext.) : Additional Comment DIAGNOSTIC RADIOLOGY Patient: DEBBIE MEHTA Medical Record: [id number] [facility] : 1985, Age: 39 Sex: Female Location: ER Patient Status: [facility] ER Service Date/Time: 12/25/242008 Ordering Physician: JHON PATEL PAC Exam: TOE(S) CLINICAL INDICATION: left small toe fx repeat xray, LAST XRAY 10/29/2024 TECHNIQUE: 3 radiographic views of the left 5th toe were obtained. Comparison: DI TOE(S) on DOS: 05/10/23 FINDINGS/IMPRESSION: There is redemonstration of Old fracture deformity of the distal part of the 5th toe proximal phalanx. No new fractures or dislocations are noted. The visualized joint space is well maintained. The alignment is anatomical. There is no radiopaque foreign body. Electronically Signed by:ALYSA HUGHES DO Date & Time: 12/25/242023 Dictated by: ALYSA HUGHES DO Dictation date and time: 12/25/242023 Primary Care Provider: NO PRIMARY CARE PROVIDER cc: JHON PATEL PAC ~ Medical Decision Making Findings Patient is seen today with complaints of left small toe pain. 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 Patient states she is taking max doses of Tylenol and diclofenac sodium without any relief of pain. Patient states she wants narcotic pain meds. Patient failed to mention to me that she was just in here at 3:00 a.m. this morning and saw Dr. Cruz for rib pain and received a Ogden five in the ED earlier this morning. Patient currently denies any chest pain or shortness of breath or abdominal pain or nausea, vomiting, diarrhea. Patient has no other concern or complaint at this time. X-ray of left toe redemonstrated old healed fracture without any sign of acute fracture per radiologist findings. Patient was given Ogden tablet in the ED today. Patient was exhibiting drug-seeking behavior and prescription of narcotic pain med will not be sent to patient's pharmacy. Patient will continue Tylenol and ibuprofen as needed for symptomatic relief. I recommended to patient to follow up with ash k[employer] boiler as needed moving forward for her toe pain and I also explained to patient that I would make a note in her chart of her drug-seeking behavior has a warning to further clinicians should she choose to come back seeking narcotic pain meds again. Patient voiced understanding. Departure Disposition: HOME / SELF CARE / HOMELESS Impression: Primary Impression: Pain of toe Qualified Codes: M79.675 - Pain in left toe(s) Additional Impression: Drug-seeking behavior Condition: Improved Additional Instructions: Patient will continue Tylenol and ibuprofen as needed for symptomatic relief. I recommended to patient to follow up with [employer] boiler as needed moving forward for her toe pain. Patient will return to ED with any worsening, concerning or changing symptoms. Referrals: NO PRIMARY CARE PROVIDER (PCP) Signature Scribe Signature: No scribe Attestation: No scribe JHON PATEL PAC Dec 25, 2024 20:02
--- NOTE | 2024-12-25 20:26 | RADIOLOGY REPORT ---
CLINICAL INDICATION: left small toe fx repeat xray, LAST XRAY 10/29/2024 TECHNIQUE: 3 radiographic views of the left 5th toe were obtained. Comparison: DI TOE(S) on DOS: 05/10/23 FINDINGS/IMPRESSION: There is redemonstration of Old fracture deformity of the distal part of the 5th toe proximal phalanx . No new fractures or dislocations are noted. The visualized joint space is well maintained. The alignment is anatomical. There is no radiopaque foreign body.
[2024-12-25 20:38] VITALS: RESP 16
[2024-12-25] MEDS: HYDROcodone/acetaminophen 10/325mg tab PO STA (20:38)
[2024-12-25 21:02] VITALS: TEMP 98.9
== END 2024-12-25 21:03 | disposition home or self-care (01) ==
LOC: ER 15:49
DX: M79.675 Pain in left toe(s) (principal); E78.00 Pure hypercholesterolemia, unspecified; F31.9 Bipolar disorder, unspecified; J45.909 Unspecified asthma, uncomplicated; Z88.0 Allergy status to penicillin; Z88.8 Allergy status to other drugs, medicaments and biological substances; Z90.710 Acquired absence of both cervix and uterus
CPT/HCPCS: 73660; 99283